=== PATIENT | male | born 1955 | race Caucasian/White ===

== ENCOUNTER 2017-08-09 05:10 | Inpatient (IN) | payer BC, OTHER ==
[2017-08-01 08:33] VITALS: Ht 177.8 cm; Wt 97.3 kg
--- NOTE | 2017-08-01 09:08 | PAT Medication Instructions ---
Service Date Aug 01, 2017. Current Home Medication List Acetaminophen (Tylenol), 1,000 MG PO BID Allopurinol (Zyloprim), 300 MG PO QAM Amoxicillin (Amoxil), 4 TAB PO UD PRN for PRIOR TO DENTAL WORK Apremilast (Otezla), 30 MG PO BID Calcium Citrate-Vitamin D (Citracal + D3 Maximum), 2 TAB PO QAM Cholecalciferol (Vitamin D3), 1,000 INTERUNIT PO QAM Naproxen (Naprosyn), 500 MG PO QAM Olmesartan Medoxomil (Benicar), 20 MG PO QAM Omeprazole (Prilosec), 20 MG PO QAM Ondansetron Hcl (Zofran), 8 MG PO Q8 PRN for Nausea Tramadol (Ultram), 100 MG PO BID PRN for Pain [Stelara Inj], 1 DOSE INJ [id number] Medication Instructions For Your Scheduled Surgery Amoxicillin (Amoxil), 4 TAB PO UD PRN for PRIOR TO DENTAL WORK (continue as directed) - Check with surgeon for instructions: Naproxen (Naprosyn), 500 MG PO QAM - Check with prescribing physician for instructions: [Stelara Inj], 1 DOSE INJ [id number] Apremilast (Otezla), 30 MG PO BID - Hold the following medications the morning of surgery: Olmesartan Medoxomil (Benicar), 20 MG PO QAM Cholecalciferol (Vitamin D3), 1,000 INTERUNIT PO QAM Calcium Citrate-Vitamin D (Citracal + D3 Maximum), 2 TAB PO QAM - Take the following medications the morning of surgery with a sip of water: Tramadol (Ultram), 100 MG PO BID PRN for Pain (okay to take up to 4 hours prior to surgery if needed) Omeprazole (Prilosec), 20 MG PO QAM Ondansetron Hcl (Zofran), 8 MG PO Q8 PRN for Nausea (if needed) Acetaminophen (Tylenol), 1,000 MG PO BID(okay to take up to 4 hours prior to surgery if needed) Allopurinol (Zyloprim), 300 MG PO QAM - Take the following medications as scheduled the night before surgery: Tramadol (Ultram), 100 MG PO BID PRN for Pain (if needed) Ondansetron Hcl (Zofran), 8 MG PO Q8 PRN for Nausea (if needed) Acetaminophen (Tylenol), 1,000 MG PO BID If you have any questions please call us at [phone] or [phone] or [phone]
--- NOTE | 2017-08-01 09:45 | DIAGNOSTIC IMAGING REPORT ---
CHEST 2 VIEWS ROUTINE CLINICAL HISTORY: Preoperative chest COMPARISON STUDY: No previous studies for comparison. FINDINGS: The cardiac and mediastinal contours are normal. There is no evidence of focal pulmonary consolidation. There is no evidence of failure. No pleural effusions are visualized.[There is minor basilar atelectasis/scarring. There is a 6 mm right lower lung zone rounded opacity. A faint similar appearing densities present on the left. Nipple shadows are favored. IMPRESSION: No active disease in the chest. Electronically signed by: Killian Oconnor M.D. 08/01/2017 9:43 AM Dictated Date/Time: 08/01/2017 9:41 AM
[2017-08-01 10:19] LABS: BASO % 0.6 %; BASO ABS # 0.05 K/uL (0-0.2); EOS % 2.2 %; EOS ABS # 0.17 K/uL (0-0.5); HEMATOCRIT 45.6 % (42-52); HEMOGLOBIN 15.7 g/dL (14.0-18.0); IG# 0.02 K/uL (0.00-0.02); LYMPH % 17.2 %; LYMPH ABS # 1.33 K/uL (1.2-3.4); MEAN CORPUSCULAR HEMOGLOBIN 32.4 pg (25-34); MEAN CORPUSCULAR HGB CONC 34.4 g/dl (32-36); MEAN PLATELET VOLUME 11.5 fL (7.4-10.4); MONO ABS # 0.77 K/uL (0.11-0.59); NEUT % 69.7 %; NEUT ABS # 5.38 K/uL (1.4-6.5); PLATELET COUNT 281 K/uL (130-400); RED CELL DISTRIBUTION WIDTH CV 13.7 % (11.5-14.5); RED CELL DISTRIBUTION WIDTH SD 47.1 fL (36.4-46.3); WHITE BLOOD COUNT 7.72 K/uL (4.8-10.8)
[2017-08-01 10:29] LABS: INR 0.9 (0.9-1.1); PTT PATIENT 27.3 SECONDS (21.0-31.0)
[2017-08-01 11:42] LABS: ALBUMIN 3.8 gm/dl (3.4-5.0); CALCIUM 9.8 mg/dl (8.5-10.1); CREATININE 0.89 mg/dl (0.60-1.40); POTASSIUM 4.6 mmol/L (3.5-5.1)
--- NOTE | 2017-08-08 11:46 | HISTORY & PHYSICAL EXAMINATION ---
DATE OF ADMISSION: 08/09/2017 CHIEF COMPLAINT: Right hip pain. HISTORY OF PRESENT ILLNESS: The patient is a 62-year-old gentleman with progressive debilitating right hip pain. He has been known to have some moderate degenerative changes in this hip. He had a corticosteroid injection in the recent past. He has had increased pain and repeat x-rays demonstrate progressive severe degenerative hip disease with collapse of the femoral head. He is now scheduled for right total hip arthroplasty. PAST MEDICAL HISTORY: Hypertension, psoriatic arthritis and gout. PAST SURGICAL HISTORY: Left knee replacement, tonsillectomy, adenoidectomy. MEDICATIONS: Stelara subQ as directed, calcium citrate every morning as indicated. Prednisone as prescribed, vitamin D3 2000 units daily, allopurinol 300 mg daily, Otezla 30 mg twice daily, omeprazole 20 mg daily, Benicar 40 mg 1/2 tablet daily. ALLERGIES: TETRACYCLINE. SOCIAL HISTORY AND REVIEW OF SYSTEMS: Noncontributory. PHYSICAL EXAMINATION: GENERAL: Well-nourished, well-developed male who appears stated age. HEAD, EYES, EARS, NOSE, AND THROAT: Normocephalic, atraumatic, extraocular movements intact, oropharynx pink and moist. NECK: Supple without adenopathy. LUNGS: Clear to auscultation bilaterally. HEART: Regular rate and rhythm. ABDOMEN: Soft, nontender, nondistended. EXTREMITIES: The upper extremities are within normal limits. The right hip demonstrates severe painful range of motion. There is limitation of active and passive internal/external rotation. X-RAYS: X-rays were reviewed. Shows severe osteoarthritis about the right hip with collapse of the femoral head. There is deformation and flattening of the femoral head. ASSESSMENT: Right hip degenerative joint disease. PLAN: Risks versus benefits were discussed. Consent was obtained. The patient's primary care physician is Dr. Zhou from [facility] in [place]. Will proceed with right total hip as indicated.
[~2017-08-09] VITALS: Ht 177.8 cm; Wt 97.3 kg
[2017-08-09] VITALS (10 sets, daily range): BP systolic 104–134; BP diastolic 65–81; PULSE 84–97; TEMP 36.4–36.7; O2SAT 94–99
[~2017-08-09 05:10] MED LIST: ACET-1256 PO; ALLO300T2 PO; AMOX500C3 PO; APRE1TAB3 PO; BNC40 PO; CALC1TAB9 PO; NAPR-1169 PO; ONDA4TAB46 PO; PRLSR20 PO; STELARA; TRAM-10 PO; VTMD1000 PO
[2017-08-09] MEDS ORDERED: LACTATED RINGER'S 1000ML 1,000 ML IV SCH (06:00)
[2017-08-09] MEDS ORDERED: LACTATED RINGER'S 1000ML 500 ML IV SCH (06:00)
[2017-08-09] MEDS ORDERED: LACTATED RINGER'S 1000ML IV SCH (06:00)
[2017-08-09] MEDS ORDERED: FAMOTIDINE 20 MG TAB PO SCH (06:00)
[2017-08-09] MEDS ORDERED: GABAPENTIN 300 MG CAP PO SCH (06:00)
[2017-08-09] MEDS ORDERED: METOCLOPRAMIDE HCL 10 MG TAB PO SCH (06:00)
[2017-08-09] MEDS ORDERED: DEXAMETHASONE 4 MG TAB PO SCH (06:00)
[2017-08-09] MEDS ORDERED: CeleBREX 200 MG CAP PO SCH (06:00)
[2017-08-09] MEDS ORDERED: ROPIVACAINE 5MG/ML 30 ML 150 MG, BUPIVACAINE 0.5% MPF INJ 30 ML, EpINEphrine HCL INJ 0.... INFIL SCH ×8 (06:00)
[2017-08-09] MEDS ORDERED: CEFAZOLIN 2000MG IV PUSH 10 ML IV SCH (06:00)
[2017-08-09] MEDS ORDERED: ACETAMINOPHEN 500 MG TAB PO SCH (06:00)
[2017-08-09] MEDS ORDERED: BUPIVACAINE 0.5 % 5 MG/1 ML PF 10ML VIAL ONE (06:22)
[2017-08-09] MEDS ORDERED: LIDOCAINE HCL 2% 2 ML VIAL (20MG/ML) ONE (06:38)
[2017-08-09] MEDS ORDERED: PROPOFOL IV EMULSION 10 MG/ML 20 ML VIAL IV ONE (06:38)
[2017-08-09] MEDS ORDERED: MIDAZOLAM HCL 1 MG/ML 2ML VIAL ONE ×2 (06:38→08:09)
[2017-08-09] MEDS ORDERED: ONDANSETRON INJ 2 MG/ML 2 ML VIAL ONE (06:38)
[2017-08-09] MEDS ORDERED: FENTANYL CITRATE INJ 50 MCG/1 ML 2 ML VIAL ONE (06:38)
[2017-08-09] MEDS: TRANEXAMIC ACID INJ 1,000 MG in SYRINGE 0 ML IV SCH ×2 (07:01→11:37)
[2017-08-09] MEDS ORDERED: ORTHO JOINT ANESTHETIC ONE (07:02)
--- NOTE | 2017-08-09 07:02 | History & Physical Bridge Note ---
H&P Re-Evaluation Bridge Note: I have examined the patient, reviewed the History & Physical and in the interval since the performance of the History & Physical I have noted the following changes of clinical significance: No changes noted
[2017-08-09] MEDS ORDERED: BACITRACIN 50000 UNIT VIAL ONE (07:03)
[2017-08-09] MEDS ORDERED: POVIDONE-IODINE OP SOLN 30 ML BTL ONE (07:03)
[2017-08-09] MEDS ORDERED: ONDANSETRON INJ 2 MG/ML 2 ML VIAL IV PRN ×2 (07:30→09:15)
[2017-08-09] MEDS ORDERED: ATROPINE SULFATE 0.1 MG/ML 5ML SYR IV PRN (07:30)
[2017-08-09] MEDS ORDERED: EpHEDrine SULFATE INJ 50 MG/ML AMP IV PRN (07:30)
[2017-08-09] MEDS ORDERED: PROMETHAZINE HCL INJ 6.25 MG in SODIUM CHLORIDE 0.9% 50ML 50 ML IV PRN (07:30)
[2017-08-09] MEDS ORDERED: FENTANYL CITRATE INJ 50 MCG/1 ML 2 ML VIAL IV PRN (07:30)
[2017-08-09] MEDS ORDERED: PHENYLEPHRINE 100MCG/ML 5ML SYR ONE (08:17)
--- NOTE | 2017-08-09 08:36 | [facility] Post Operative Brief Note ---
Immediate Operative Summary Operative Date Aug 09, 2017. Pre-Operative Diagnosis Right Hip Degenerative Joint Disease Post-Operative Diagnosis Right Hip Degenerative Joint Disease Procedure(s) Performed Right Total Hip Arthroplasty Surgeon Dr. Otto Photo Technologist Surgeon(s) Chad Fuchs PA-C Estimated Blood Loss 100 mL Findings oa Specimens A: Right Femoral Head Disposition Recovery Room / PACU
[2017-08-09] MEDS ORDERED: ZOLPIDEM TARTRATE 5 MG TAB PO PRN (09:15)
[2017-08-09] MEDS ORDERED: OXYCODONE HCL IR 5 MG TAB (IMMEDIATE RELEASE) PO PRN (09:15)
[2017-08-09] MEDS ORDERED: MoRPHine SULFATE 2 MG/ML CARP IV PRN ×2 (09:15→12:00)
[2017-08-09] MEDS ORDERED: ALUMINUM/MAGNESIUM/SIMETH (MAALOX MAX) 30 ML UDC PO PRN (09:15)
[2017-08-09] MEDS ORDERED: TAMSULOSIN HCL 0.4 MG CAP PO PRN (09:15)
[2017-08-09] MEDS ORDERED: METOCLOPRAMIDE HCL INJ 5 MG/ML 2 ML VIAL IV PRN (09:15)
[2017-08-09] MEDS ORDERED: MAGNESIUM HYDROXIDE SUSP 30 ML UDC PO PRN (09:15)
--- NOTE | 2017-08-09 09:49 | DIAGNOSTIC IMAGING REPORT ---
SINGLE VIEW PELVIS; SINGLE VIEW RIGHT HIP CLINICAL HISTORY: Postoperative examination. FINDINGS: An AP portable view of the hips and pelvis with a crosstable lateral portable view of the right hip are obtained. A bipolar right hip arthroplasty is in near-anatomic alignment. A single cortical lag screw transfixes the acetabular cup. No acute fracture is identified. There are expected postoperative changes overlying the right hip including subcutaneous gas, a surgical drain, and soft tissue swelling. IMPRESSION: Expected postoperative findings status post right hip arthroplasty. No acute fracture is seen. Electronically signed by: Chalo Fletcher M.D. 08/09/2017 9:48 AM Dictated Date/Time: 08/09/2017 9:48 AM
--- NOTE | 2017-08-09 10:10 | Anesthesiology Progress Note ---
Anesthesia Post Op Note Date & Time Aug 09, 2017 at 10:09 Vital Signs Pain Intensity: 0 Vital Signs Past 12 Hours Date Time Temp Pulse Resp B/P (MAP) Pulse Ox O2 Delivery O2 Flow Rate FiO2 08/09/17 10:05 79 13 122/72 96 Nasal Cannula 2 08/09/17 09:55 78 12 110/72 97 Nasal Cannula 2 08/09/17 09:45 78 20 115/44 98 Nasal Cannula 2 08/09/17 09:35 78 19 103/67 97 Nasal Cannula 2 08/09/17 09:25 80 11 103/64 97 Nasal Cannula 2 08/09/17 09:15 80 21 105/70 97 Oxymask 10 08/09/17 09:08 36.6 83 14 104/63 96 Oxymask 10 08/09/17 05:59 36.5 86 18 121/75 96 Room Air Notes Mental Status: alert / awake / arousable, participated in evaluation Pt Amnestic to Procedure: Yes Nausea / Vomiting: adequately controlled Pain: adequately controlled Airway Patency, RR, SpO2: stable & adequate BP & HR: stable & adequate Hydration State: stable & adequate Neuraxial Anesthesia: was administered, sensory block is resolving Anesthetic Complications: no major complications apparent
--- NOTE | 2017-08-09 10:33 | OPERATIVE REPORT ---
DATE OF OPERATION: 08/09/2017 PREOPERATIVE DIAGNOSIS: Osteoarthritis, right hip. POSTOPERATIVE DIAGNOSIS: Osteoarthritis, right hip. PROCEDURE: Right total hip arthroplasty. SURGEON: Dr. Otto. DIVISION SERVICE MANAGER: Chad Fuchs PA-C. ANESTHESIA: Spinal. COMPLICATIONS: None. OPERATION AND FINDINGS: Acetabular reamer used 56, acetabular shell 56, femoral stem 4, femoral head 36+0 ceramic. DESCRIPTION OF PROCEDURE: Following induction of adequate spinal anesthesia, the patient was placed in right lateral decubitus position and right Lacy-Langenbeck incision was made. Subcutaneous tissue was sharply dissected. Electrocautery used for hemostasis. The fascia was incised throughout the length of the wound and a gilbert scissor placed beneath the short external rotators. The pyriformis was tagged with #1 Vicryl. The short external rotators were divided from the posterior aspect of the femur using electrocautery. These were swept posteriorly. A T-capsulotomy incision was made and the hip was dislocated using a combination of flexion, adduction, and internal rotation. Exposure of the femoral neck with old-style Hohmann and a blunt Hohmann was carried out and a femoral rasp was utilized as a guide for making the appropriate level femoral neck cut. This bone fragment was removed and reserved on the back table. Next, attention was turned to the acetabulum where bone hook was used to retract the femur while the offset retractors were placed anterior and posteriorly. A double-angled Hohmann was placed in superior and anterior position exposing the acetabulum nicely. Acetabular labrum as well as posterior capsule elements were removed using a long knife and a long pickup. Fovea centralis was cleared of all soft tissue. Sequential reamings were carried up to a size 56 and decision was made to proceed with impaction of a 56 trabecular metal cup. This was impacted and held using a single 35 mm bone screw. The acetabular liner was placed with 15 of elevated posterior wall in the superior and posterior position. Next, attention was turned to the femoral portion of the case where a Bovie and pickup was used to further clear short external rotators from their insertion on the femur. Box osteotome was used to gain access to the femoral canal and the T-handled rasp and a rattail rasp were used to further open and lateral the canal. Sequentially raspings were carried up to a size 4, which gave good fit and fill of the proximal femur. A trial reduction was carried out and a 132 degree femoral neck component was chosen as the size to be used. A 36+0 mm femoral head was impacted into position, +0 head was utilized. The trial reduction was stable in all degrees of rotation with no [id number] impingement. The hip was dislocated. The trial components were removed and the final femoral stem, neck, and femoral head combination were assembled on the back table and impacted into position. Hip was relocated. Range of motion checked once again successful and the wound was irrigated. The pyriformis repaired to the greater trochanter using #1 Vicryl [id number] suture. A Hemovac drain was placed and the fascia was closed using #1 Vicryl, subcutaneous tissue was closed using 0 Dexon, and skin was closed with ambar. Sterile dressing of Adaptic, 4 x 4's, ABDs, and foam tape was applied. The patient tolerated the procedure well. Due to the complex nature of the procedure, the entire surgery was performed with the operational assistance of Chad Fuchs PA-C. The credit control assistant, under direct supervision, was involved in the actual performance of all aspects of the surgical procedure including hemostasis, tissue retraction and incision, instrument management, patient positioning, and wound closure. DISPOSITION: Recovery room, stable. I attest to the content of the Intraoperative Record and any orders documented therein. Any exception s are noted below.
[2017-08-09] MEDS ORDERED: MoRPHine SULFATE 10 MG/ML CARP/VIAL IV PRN (12:00)
[2017-08-09] MEDS ORDERED: MoRPHine SULFATE 4 MG/ML 1 ML CARP\\VIAL IV PRN (12:00)
[2017-08-09] MEDS: D5W AND 1/2NSS + 20MEQ KCL 1,000 ML IV SCH ×2 (12:54→21:03)
[2017-08-09] MEDS: FERROUS GLUCONATE 324 MG TAB PO SCH ×2 (12:55→17:35)
[2017-08-09] MEDS: KETOROLAC TROMETHAMINE 30 MG/ML VIAL IV. SCH ×2 (12:55→17:35)
[2017-08-09] MEDS: ACETAMINOPHEN 500 MG TAB PO SCH ×2 (12:56→21:03)
[2017-08-09] MEDS: CEFAZOLIN IV 2,000 MG in SYRINGE 0 ML IV SCH (15:34)
[2017-08-09] MEDS: ASPIRIN 81 MG ECTAB PO SCH (21:03)
[2017-08-09] MEDS: DOCUSATE SODIUM 100 MG CAP PO SCH (21:03)
[2017-08-10] MEDS: KETOROLAC TROMETHAMINE 30 MG/ML VIAL IV. SCH ×2 (00:25→04:58)
[2017-08-10] MEDS: CEFAZOLIN IV 2,000 MG in SYRINGE 0 ML IV SCH (00:25)
[2017-08-10 03:30] VITALS: BP 133/74; PULSE 90; TEMP 36.6; O2SAT 97
[2017-08-10] MEDS: ACETAMINOPHEN 500 MG TAB PO SCH ×2 (04:57→12:33)
[2017-08-10 05:35] LABS: BASO % 0.1 %; BASO ABS # 0.01 K/uL (0-0.2); EOS % 0.3 %; EOS ABS # 0.05 K/uL (0-0.5); HEMATOCRIT 39.1 % (42-52); HEMOGLOBIN 13.3 g/dL (14.0-18.0); IG# 0.05 K/uL (0.00-0.02); LYMPH % 11.6 %; LYMPH ABS # 1.81 K/uL (1.2-3.4); MEAN CELL VOLUME 93.3 fL (80-100); MEAN CORPUSCULAR HEMOGLOBIN 31.7 pg (25-34); MEAN PLATELET VOLUME 11.3 fL (7.4-10.4); MONO % 7.9 %; MONO ABS # 1.24 K/uL (0.11-0.59); NEUT % 79.8 %; NEUT ABS # 12.48 K/uL (1.4-6.5); PLATELET COUNT 263 K/uL (130-400); RED CELL DISTRIBUTION WIDTH CV 13.5 % (11.5-14.5); RED CELL DISTRIBUTION WIDTH SD 45.8 fL (36.4-46.3); WHITE BLOOD COUNT 15.64 K/uL (4.8-10.8)
[2017-08-10 06:10] LABS: CALCIUM 9.2 mg/dl (8.5-10.1); CREATININE 1.04 mg/dl (0.60-1.40); POTASSIUM 4.5 mmol/L (3.5-5.1)
[2017-08-10] MEDS: D5W AND 1/2NSS + 20MEQ KCL 1,000 ML IV SCH (06:38)
[2017-08-10 06:52] VITALS: BP 139/87; PULSE 87; TEMP 36.8; O2SAT 99
[2017-08-10] MEDS ORDERED: DEXAMETHASONE INJ 10 MG in SYRINGE 0 ML IV SCH (07:30)
--- NOTE | 2017-08-10 07:41 | Orthopedic Progress Note ---
Orthopedic Progress Note Date of Service Aug 10, 2017. Subjective Post OP Day: 1 Reports: feeling well Objective calves soft nontender, N/V intact, dressing C/D/I (Hemovac d/c'd), toes mobile Date Time Temp Pulse Resp B/P (MAP) Pulse Ox O2 Delivery O2 Flow Rate FiO2 08/10/17 06:52 36.8 87 19 139/87 (104) 99 Room Air 08/10/17 03:30 36.6 90 16 133/74 (93) 97 Room Air 08/10/17 00:15 Room Air 08/09/17 23:27 36.5 84 16 134/76 (95) 97 Room Air 08/09/17 19:17 36.7 91 16 108/67 (81) 96 Room Air 08/09/17 15:16 Room Air 2.0 08/09/17 15:02 36.5 89 16 130/73 (92) 94 Room Air 08/09/17 13:58 36.6 89 18 111/70 (84) 96 Room Air 08/09/17 13:36 95 Room Air 08/09/17 12:52 36.5 97 18 108/68 (81) 94 Room Air 08/09/17 11:51 36.4 85 19 104/65 (78) 99 Nasal Cannula 2.0 08/09/17 11:15 36.5 84 19 122/81 (95) 97 Nasal Cannula 2.0 08/09/17 10:45 97 Nasal Cannula 2.0 08/09/17 10:45 36.5 86 18 104/70 (81) 97 Nasal Cannula 2.0 08/09/17 10:45 97 Nasal Cannula 2.0 08/09/17 10:25 36.4 81 14 112/75 96 Nasal Cannula 2 08/09/17 10:15 36.4 82 16 112/72 96 Nasal Cannula 2 08/09/17 10:05 79 13 122/72 96 Nasal Cannula 2 08/09/17 09:55 78 12 110/72 97 Nasal Cannula 2 08/09/17 09:45 78 20 115/44 98 Nasal Cannula 2 08/09/17 09:35 78 19 103/67 97 Nasal Cannula 2 08/09/17 09:25 80 11 103/64 97 Nasal Cannula 2 08/09/17 09:15 80 21 105/70 97 Oxymask 10 08/09/17 09:08 36.6 83 14 104/63 96 Oxymask 10 Laboratory Results 24 Hours: Test 08/10/17 05:19 White Blood Count 15.64 K/uL Red Blood Count 4.19 M/uL Hemoglobin 13.3 g/dL Hematocrit 39.1 % Mean Corpuscular Volume 93.3 fL Mean Corpuscular Hemoglobin 31.7 pg Mean Corpuscular Hemoglobin Concent 34.0 g/dl Platelet Count 263 K/uL Mean Platelet Volume 11.3 fL Neutrophils (%) (Auto) 79.8 % Lymphocytes (%) (Auto) 11.6 % Monocytes (%) (Auto) 7.9 % Eosinophils (%) (Auto) 0.3 % Basophils (%) (Auto) 0.1 % Neutrophils # (Auto) 12.48 K/uL Lymphocytes # (Auto) 1.81 K/uL Monocytes # (Auto) 1.24 K/uL Eosinophils # (Auto) 0.05 K/uL Basophils # (Auto) 0.01 K/uL Assessment & Plan Assessment: 62 yo male stable POD #1 s/p right ANIKET Plan: 1. Med management 2. DVT prophylaxis- ASA, SCDs 3. PT/OT 4. D/C planning- home w/ HH
[2017-08-10] MEDS ORDERED: RXC5 PO (07:43)
[2017-08-10] MEDS ORDERED: CLB200 PO (07:43)
[2017-08-10] MEDS ORDERED: ONDA8TAB12 PO (07:43)
[2017-08-10] MEDS ORDERED: ASPEC81 PO (07:43)
[2017-08-10] MEDS ORDERED: ACET-24 PO (07:43)
--- NOTE | 2017-08-10 07:45 | Discharge Instructions ---
Discharge Instructions Date of Service Aug 10, 2017. Admission Reason for Admission: Right Hip Osteoarthritis Discharge Discharge Diagnosis / Problem: Right hip arthritis Discharge Goals Goal(s): Decrease discomfort, Improve function Activity Recommendations Activity Limitations: as noted below Weightbearing Status: Right weightbearing (as tolerated) . Instructions / Follow-Up Instructions / Follow-Up ACTIVITY RECOMMENDATIONS: SELF CARE INSTRUCTIONS AFTER TOTAL HIP REPLACEMENT Until the incision and soft tissues around your hip have healed, there is a possibility that the hip prosthesis could dislocate. A. Observe the following precautions to prevent dislocation: 1. Don't bend your hip greater than 90 degrees. 2. Avoid crossing your legs or ankles while standing or lying. 3. Sit with your feet placed 6 inches apart. 4. When sitting, keep your knees below your hips. Sit on a firm surface, avoid deep, soft chairs and couches. Use an elevated toilet seat in the bathroom. 5. Don't bend over at the waist. Use a long handled shoehorn and a sock aid to help you put on your shoes and socks. A metal numerical tool programmer can help you poultry picking machine tender objects that are too high or too low to reach. 6. Keep car riding to a minimum for at least one month after surgery. B. Your balance may be shaky for a while. Use crutches or a walker until directed by your doctor. C. Use hand rails when walking on stairs. D. Wear low heeled shoes with non-slip soles. E. Be sure that your floors are free of things that could trip you - throw rugs , electrical cords, small objects. Avoid wet and waxed floors, especially with crutches and canes. F. Try to walk several times a day with rest periods between. G. Continue with all the exercises taught to you in the hospital. Again, make walking a part of your daily routine. SPECIAL CARE INSTRUCTIONS: VERY IMPORTANT TO READ AND REVIEW A. You may still be at risk for phlebitis and blood clots. 1. Wear surgical stockings (GURWINDER hose) for 2 weeks after surgery to improve circulation and reduce swelling. 2. Take Aspirin 81mg twice daily for 4 weeks or as directed by your doctor. This is your blood thinner. 3. High risk patients may be prescribed a stronger blood thinner if necessary. 4. If you are on Coumadin normally, your family doctor/pickling tank operator should monitor your blood work. Expect a phone call the day of or the day after bloodwork is drawn to adjust your dosage. B. You must take antibiotics before having dental work, bladder, bowel and other surgery. Your doctor will provide you with a permanent card to carry describing precautions. C. Call [facility] if you have a fever, redness or swelling around the incision, cloudy drainage from incision, or sudden increase in pain in your hip, not relieved by your regular pain medication. D. Please call the office at if you have any concerns or questions about your operation or recovery. * YOU MAY SHOWER, NO TUB BATHS UNTIL CLEARED BY YOUR DOCTOR. * WEAR GURWINDER HOSE 20 HOURS PER DAY FOR 2 WEEKS. * YOU SHOULD USE A WALKER OR CRUTCHES FOR 2-4 WEEKS. THIS WILL HELP PREVENT STRAIN ON YOUR HIP MUSCLE AND ALLOW IT TO HEAL PROPERLY. YOU MAY WEAN TO A CANE TOLERATED. * MOST PATIENTS WILL HAVE HOME NURSING FOR THERAPY. IF YOU DECIDE TO DO OUTPATIENT PHYSICAL THERAPY, PLEASE SCHEDULE THIS 3 TIMES PER WEEK. Silverlon- This is a large adhesive bandage that contains silver ions. This helps your incision heal by fighting off bacteria and protecting it from the outside environment. You are permitted to shower with this dressing. This will remain on your incision for 7 days and then should be removed. Some visible blood or drainage through the dressing window is normal. If there is significant drainage or leaking noted before the 7 days notify your doctor's office immediately. Once removed, keep incision clean and dry. If there is any drainage or redness noted, please call your surgeon. Maintain zipline closure when removing Silverlon. Zipline should remain in place until follow- up with MD. FOLLOW UP VISIT: If appointment is not already scheduled: Please call [facility] to make a follow-up appointment for 2 weeks after your surgery at . Current Hospital Diet Patient's current hospital diet: Regular Diet Discharge Diet Recommended Diet: Regular Diet Procedures Procedures Performed: Right Total Hip Arthroplasty Pending Studies Studies pending at discharge: no Laboratory Results Hemoglobin A1c Test 08/01/17 09:16 Range/Units Estimated Average Glucose 126 mg/dl Hemoglobin A1c 6.0 H 4.5-5.6 % Medical Emergencies . Who to Call and When: Medical Emergencies: If at any time you feel your situation is an emergency, please call 911 immediately. . Non-Emergent Contact Non-Emergency issues call your: Surgeon Call Non-Emergent contact if: temperature is above 101.5, your pain is not controlled, wound has increased drainage, wound has increased redness . "Provider Documentation" section prepared by Chad Fuchs PA-C. . VTE Core Measure Inpt VTE Proph given/why not?: Other Anticoagulation (ASA 81mg bid), T.E.D. Stockings, SCD's [place] Drug Monitoring Program Search Results: patient reviewed within database, no issues identified
[2017-08-10] MEDS: ASPIRIN 81 MG ECTAB PO SCH (08:10)
[2017-08-10] MEDS: DOCUSATE SODIUM 100 MG CAP PO SCH (08:10)
[2017-08-10] MEDS: FERROUS GLUCONATE 324 MG TAB PO SCH ×2 (08:11→12:33)
--- NOTE | 2017-08-10 08:26 | Anesthesiology Progress Note ---
Anesthesia Post Op Note Date & Time Aug 10, 2017 at 08:26 Vital Signs Pain Intensity: 0.0 Vital Signs Past 12 Hours Date Time Temp Pulse Resp B/P (MAP) Pulse Ox O2 Delivery O2 Flow Rate FiO2 08/10/17 06:52 36.8 87 19 139/87 (104) 99 Room Air 08/10/17 03:30 36.6 90 16 133/74 (93) 97 Room Air 08/10/17 00:15 Room Air 08/09/17 23:27 36.5 84 16 134/76 (95) 97 Room Air Notes Mental Status: alert / awake / arousable, participated in evaluation Pt Amnestic to Procedure: Yes Nausea / Vomiting: adequately controlled Pain: adequately controlled Airway Patency, RR, SpO2: stable & adequate BP & HR: stable & adequate Hydration State: stable & adequate Neuraxial Anesthesia: sensory block resolved Anesthetic Complications: no major complications apparent
[2017-08-10] MEDS ORDERED: MULTIVITAMIN TAB PO SCH (09:00)
[2017-08-10] MEDS ORDERED: OLMESARTAN MEDOXOMIL 20 MG TAB PO SCH (09:00)
[2017-08-10] MEDS ORDERED: CHOLECALCIFEROL 1000 INTER.UNIT TAB PO SCH (09:00)
[2017-08-10] MEDS ORDERED: ALLOPURINOL 300 MG TAB PO SCH (09:00)
[2017-08-10] MEDS ORDERED: PANTOprazole SOD 40 MG TAB PO SCH (09:00)
[2017-08-10 12:39] VITALS: BP 139/87; PULSE 87; TEMP 36.8; O2SAT 99
[2017-08-10] MEDS ORDERED: CeleBREX 200 MG CAP PO SCH (21:00)
== END 2017-08-10 14:51 | disposition home health service (06) | DRG 470 ==
LOC: C.ACU 05:10 → C.3E 09:12 → ENRESERV 09:47
PROC: 0SR903A Replacement of Right Hip Joint with Ceramic Synthetic Substitute, Uncemented, Open Approach (ICD-10-PCS; principal; 2017-08-09 07:30)
DX: M16.11 Unilateral primary osteoarthritis, right hip (principal); I10 Essential (primary) hypertension; M10.9 Gout, unspecified; Z79.52 Long term (current) use of systemic steroids; Z79.899 Other long term (current) drug therapy; Z96.652 Presence of left artificial knee joint

== ENCOUNTER → 2017-10-10 | Outpatient (CLI) | payer OTHER ==
[~2017-10-10] MED LIST changes: -ACET-1256 PO; +ACET-24 PO; +ASPEC81 PO; +CLB200 PO; -NAPR-1169 PO; +NAPR-998 PO; +NAPR250T3 PO; +RXC5 PO; +ULT50X PO
[2017-10-10 14:29] LABS: BASO % 0.6 %; BASO ABS # 0.05 K/uL (0-0.2); EOS ABS # 0.08 K/uL (0-0.5); HEMATOCRIT 44.7 % (42-52); HEMOGLOBIN 15.3 g/dL (14.0-18.0); IG# 0.03 K/uL (0.00-0.02); LYMPH % 23.1 %; LYMPH ABS # 1.92 K/uL (1.2-3.4); MEAN CELL VOLUME 92.7 fL (80-100); MEAN CORPUSCULAR HEMOGLOBIN 31.7 pg (25-34); MEAN CORPUSCULAR HGB CONC 34.2 g/dl (32-36); MEAN PLATELET VOLUME 11.3 fL (7.4-10.4); MONO % 5.8 %; MONO ABS # 0.48 K/uL (0.11-0.59); NEUT % 69.1 %; NEUT ABS # 5.76 K/uL (1.4-6.5); PLATELET COUNT 293 K/uL (130-400); RED CELL DISTRIBUTION WIDTH CV 13.8 % (11.5-14.5); WHITE BLOOD COUNT 8.32 K/uL (4.8-10.8)
[2017-10-10 14:52] LABS: BLOOD UREA NITROGEN 15 mg/dl (7-18); CALCIUM 9.7 mg/dl (8.5-10.1); CARBON DIOXIDE 27 mmol/L (21-32); CREATININE 0.87 mg/dl (0.60-1.40); GLUCOSE 138 mg/dl (70-99); POTASSIUM 3.6 mmol/L (3.5-5.1); SODIUM 141 mmol/L (136-145)
== END | disposition home or self-care (01) ==
LOC: C.LAB 13:07
PROVIDERS: ATTEND Optometrist
DX: Z01.812 Encounter for preprocedural laboratory examination (principal)

== ENCOUNTER 2017-10-15 08:14 | Inpatient (IN) | payer OTHER ==
[2017-10-11 10:56] VITALS: BMI 31.0
[~2017-10-15] VITALS: Ht 177.8 cm; Wt 97.3 kg
[2017-10-15] VITALS (11 sets, daily range): BP systolic 119–142; BP diastolic 72–85; PULSE 76–101; TEMP 36.4–36.7; O2SAT 96–98; Ht 177.8 cm; Wt 97.3 kg
[~2017-10-15 08:14] MED LIST changes: +ACETAMINOPHEN 500 MG TAB PO SCH; +CEFAZOLIN 2000MG IV PUSH 15 ML IV SCH; +CeleBREX 200 MG CAP PO SCH; +GABAPENTIN 600 MG PO SCH; +LACTATED RINGER'S 1000ML 1,000 ML IV SCH; -NAPR-998 PO; -NAPR250T3 PO; -ULT50X PO
[2017-10-15] MEDS ORDERED: MEPERIDINE HCL 25 MG/ML CARP IV PRN (09:00)
[2017-10-15] MEDS ORDERED: NALOXONE HCL 0.4 MG/1 ML VIAL/CARP IV PRN ×2 (09:00→12:15)
[2017-10-15] MEDS ORDERED: ONDANSETRON INJ 2 MG/ML 2 ML VIAL IV PRN ×2 (09:00→12:15)
[2017-10-15] MEDS ORDERED: ATROPINE SULFATE 0.1 MG/ML 5ML SYR IV PRN (09:00)
[2017-10-15] MEDS ORDERED: EpHEDrine SULFATE INJ 50 MG/ML AMP IV PRN (09:00)
[2017-10-15] MEDS ORDERED: PHENYLEPHRINE 100MCG/ML 5ML SYR IV PRN (09:00)
[2017-10-15] MEDS ORDERED: FENTANYL CITRATE INJ 50 MCG/1 ML 2 ML VIAL IV PRN (09:00)
[2017-10-15] MEDS ORDERED: FLUMAZENIL 0.1 MG/1 ML 10 ML VIAL IV PRN (09:00)
[2017-10-15] MEDS ORDERED: LABETALOL HCL IV 5 MG/ML 20ML IV PRN (09:00)
[2017-10-15] MEDS ORDERED: NAPR-998 PO ×2 (09:24)
[2017-10-15] MEDS ORDERED: NAPR250T3 PO ×2 (09:24)
[2017-10-15] MEDS ORDERED: MIDAZOLAM HCL 1 MG/ML 2ML VIAL ONE (09:27)
[2017-10-15] MEDS ORDERED: FENTANYL CITRATE INJ 50 MCG/1 ML 2 ML VIAL ONE ×3 (09:27→10:38)
--- NOTE | 2017-10-15 09:47 | History and Physical ---
History & Physical Date Oct 15, 2017. Chief Complaint Neck pain with bilateral arm pain History of Present Illness The patient is a 62 year old male with complaints of neck and arm pain Past Medical/Surgical History Medical Problems: (1) Arthritis of right hip Additional History Hepatic Disease: No Endocrine Disorder: No Kidney Disease: No Hypertension: No Heart Disease: No Bleeding Tendencies: No Infectious Diseases: No Allergies Coded Allergies: Tetracycline (Verified Allergy, Unknown, PT UNSURE OF RXN, OCCURED A CHILD, 10/11/17) Home Medications Scheduled Allopurinol (Zyloprim), 300 MG PO QAM Apremilast (Otezla), 30 MG PO BID Calcium Citrate-Vitamin D (Citracal + D3 Maximum), 2 TAB PO QAM Cholecalciferol (Vitamin D3), 1,000 INTERUNIT PO QAM Naproxen Sodium-Diphenhydramin (Aleve Pm 220-25 mg), 1 TAB PO DAILY Naproxen Tab (Naprosyn), 250 MG PO DAILY Olmesartan Medoxomil (Benicar), 20 MG PO QAM Omeprazole (Prilosec), 20 MG PO QAM [Stelara Inj], 1 DOSE INJ [id number] Scheduled PRN Amoxicillin (Amoxil), 4 TAB PO UD PRN for PRIOR TO DENTAL WORK Tramadol (Ultram), 100 MG PO BID PRN for Pain Physical Examination Skin: warm/dry, no rash Eyes: normal inspection, EOMI, sclerae normal ENT: normal ENT inspection, pharynx normal Head: normocephalic, atraumatic Neck: supple, no adenopathy, trachea midline Respiratory/Chest: lungs clear, normal breath sounds, no respiratory distress Cardiovascular: regular rate, rhythm, no edema, no murmur Abdomen / GI: normal bowel sounds, non tender Back: normal inspection Extremities: normal inspection, normal range of motion Neurologic/Psych: no motor/sensory deficits, alert, normal reflexes, oriented x 3 Diagnosis Cervical spinal stenosis with myelopathy Plan of Treatment C4 corpectomy and fusion
[2017-10-15] MEDS ORDERED: BACITRACIN 50000 UNIT VIAL ONE (10:01)
[2017-10-15] MEDS ORDERED: HYDROmorphone INJ 2 MG/ML SYR/VIAL ONE ×2 (10:38→11:52)
[2017-10-15] MEDS ORDERED: ROCURONIUM BROMIDE 10 MG/ML 5 ML VIAL IV ONE (11:52)
[2017-10-15] MEDS ORDERED: ONDANSETRON INJ 2 MG/ML 2 ML VIAL ONE ×2 (11:52→11:53)
[2017-10-15] MEDS ORDERED: PROPOFOL IV EMULSION 10 MG/ML 20 ML VIAL IV ONE (11:52)
[2017-10-15] MEDS ORDERED: DEXAMETHASONE SOD INJ 4 MG/ML VIAL ONE (11:52)
[2017-10-15] MEDS ORDERED: FLOSEAL HEMOSTATIC MATRIX 10ML TOP ONE (11:52)
[2017-10-15] MEDS ORDERED: LIDOCAINE HCL 2% 2 ML VIAL (20MG/ML) ONE (11:52)
[2017-10-15] MEDS ORDERED: NEOSTIGMINE METHYLSULFATE 1 MG/ML 10ML VIAL ONE (11:53)
[2017-10-15] MEDS ORDERED: GLYCOPYRROLATE INJ 0.2 MG/ML VIAL ONE (11:53)
[2017-10-15] MEDS ORDERED: PHENYLEPHRINE 100MCG/ML 5ML SYR ONE (11:53)
--- NOTE | 2017-10-15 12:01 | [facility] Operative Report ---
Operative Report Operative Date Oct 15, 2017. Pre-Operative Diagnosis Cervical Spinal Stenosis with Myelopathy Post-Operative Diagnosis Same Procedure(s) Performed 1. Anterior cervical corpectomy C4. #2 anterior cervical arthrodesis C3-C5. #3 placement peek cage 25 mm night C3-C5. #4 placement of locally harvested morselized autograft combined with DBM in the interbody cage. #5 application for complete and screws from C3-C5. Surgeon Dr. Jarod Salcedo Animal Killer Surgeon(s) Savana Dickey PA-C Estimated Blood Loss 50 cc Findings Severe spinal stenosis Description of Procedure Patient was met with preoperatively case discussed all questions addressed. After informed consent obtained patient was taken to the operative suite underwent intubation and placed in supine position on the Erwin table with head Guerrier headholder. All bony prominences were well-padded eyes inspected to ensure no external pressure placed upon him. This point the anterior cervical spine was prepped and draped in normal sterile fashion. The assistance of fluoroscopy identified the C4 vertebral body. Transverse incision was then placed on the right anterior aspect of the cervical spine overlying this region. Sharp dissection with the assistance of bipolar cautery was performed to expose the anterior cervical spine from C3-C5. Then performed a complete discectomy of C3-4 out to the uncovertebral joints bilaterally followed by C4-5. [place] distractor pins were then placed in C3 and C5 to distract across the C4 vertebral body. Then performed a complete corpectomy of C4 including removal of all posterior annular fibers longitudinal ligament bilateral foraminotomies for complete decompression. The endplates were then burred to subcortical bleeding bone and a 25 mm peek cage filled with locally harvested morselized autograft and DBM bone graft tapped in position. Distraction apparatus was removed and felt complete and screws applied with the assistance of fluoroscopy. Incision was then copiously irrigated explored to ensure there is no damage to surrounding structures or remaining bleeding and a 10 round NADIA drain inserted. Was then closed with 2 Vicryl in a fashion of 4-0 Monocryl for fashion closure Steri-Strips sterile dressings placed. Patient will continue taking stable condition. Please note Savana Dong was present throughout the entire procedure involved in patient positioning complex portions of the surgery and fashion closure. I attest to the content of the Intraoperative Record and any orders documented therein. Any exceptions are noted below.
[2017-10-15] MEDS ORDERED: ESMOLOL HCL 10 MG/ML 10 ML VIAL ONE (12:08)
[2017-10-15] MEDS ORDERED: HYDROmorphone INJ 0.5 MG/0.5 ML SYR IV PRN (12:15)
[2017-10-15] MEDS ORDERED: MAGNESIUM HYDROXIDE SUSP 30 ML UDC PO PRN (12:15)
[2017-10-15] MEDS ORDERED: ACETAMINOPHEN IV 100 ML IV PRN (12:15)
[2017-10-15] MEDS ORDERED: LORAZEPAM 0.5 MG TAB PO PRN (12:15)
[2017-10-15] MEDS ORDERED: DEXAMETHASONE INJ 8 MG in SYRINGE 0 ML IV PRN (12:15)
[2017-10-15] MEDS ORDERED: DiphenhydrAMINE HCL 50 MG/ML VIAL IV PRN (12:15)
[2017-10-15] MEDS ORDERED: DO NOT ADMINISTER FLU VACCINE PRN (12:15)
[2017-10-15] MEDS ORDERED: RACEPINEPHRINE 2.25% NEBU SOLN 0.5 ML VIAL INH PRN (12:15)
[2017-10-15] MEDS ORDERED: DO NOT ADMINISTER PNEUMOCOCCAL VACCINE PRN (12:15)
[2017-10-15] MEDS ORDERED: LORAZEPAM INJ 0.5 MG in SYRINGE 0.75 ML IV PRN (12:15)
[2017-10-15] MEDS ORDERED: TRAMADOL HCL 50 MG TAB PO PRN (12:15)
[2017-10-15] MEDS: HYDROmorphone INJ 2 MG/ML SYR/VIAL IV PRN ×2 (12:20→12:34)
--- NOTE | 2017-10-15 12:34 | DIAGNOSTIC IMAGING REPORT ---
CERVICAL 2 OR 3 VIEWS CLINICAL HISTORY: C4 CORPECTOMY, FUSION postoperative evaluation TECHNIQUE: Image intensifier COMPARISON STUDY: None FINDINGS: Findings consistent with an anterior fusion and corpectomy from C4 through C6. Disc spaces are present. IMPRESSION: Anatomic alignment post anterior cervical fusion and corpectomy The above report was generated using voice recognition software. It may contain grammatical, syntax or spelling errors. Electronically signed by: Cedric Gay M.D. 10/15/2017 12:33 PM Dictated Date/Time: 10/15/2017 12:32 PM
--- NOTE | 2017-10-15 12:48 | Anesthesiology Progress Note ---
Anesthesia Post Op Note Date & Time Oct 15, 2017 at 12:48 Vital Signs Pain Intensity: 2 Vital Signs Past 12 Hours Date Time Temp Pulse Resp B/P (MAP) Pulse Ox O2 Delivery O2 Flow Rate FiO2 10/15/17 12:40 77 16 138/74 96 Nasal Cannula 4 10/15/17 12:30 85 16 135/77 96 Oxymask 10 10/15/17 12:20 85 16 132/76 96 Oxymask 10 10/15/17 12:11 36.1 75 16 138/77 98 Oxymask 10 10/15/17 08:53 36.7 90 18 122/72 97 Room Air Notes Mental Status: alert / awake / arousable, participated in evaluation Pt Amnestic to Procedure: Yes Nausea / Vomiting: adequately controlled Pain: adequately controlled Airway Patency, RR, SpO2: stable & adequate BP & HR: stable & adequate Hydration State: stable & adequate Anesthetic Complications: no major complications apparent The patient is doing well. He is awake and comfortable with no neck swelling.
[2017-10-15] MEDS ORDERED: HYDROmorphone INJ 1 MG/ML SYR IV PRN (14:30)
[2017-10-15] MEDS ORDERED: ULT50X PO ×2 (14:56)
--- NOTE | 2017-10-15 14:57 | Discharge Instructions ---
Discharge Instructions Date of Service Oct 15, 2017. Admission Reason for Admission: Spinal Stenosis, Cervical Region Discharge Discharge Diagnosis / Problem: cervical stenosis Discharge Goals Goal(s): Improve function Activity Recommendations Activity Limitations: per Instructions/Follow-up section . Instructions / Follow-Up Instructions / Follow-Up ACTIVITY RECOMMENDATIONS: SELF CARE INSTRUCTIONS AFTER CERVICAL FUSIONS 1. No smoking. Smoking drastically decreases the chance of a solid fusion. 2. No bending, lifting more than 5 pounds, or twisting (roll like a log when turning in bed). 3. You may shower 3 days after surgery. Thoroughly dry wound. Do not soak in the tub. 4. Cervical collar: Must be worn at all times including sleeping. You may remove the brace only to bath, eat and if you are sitting in a recliner. 5. Please walk as much as you can for exercise. Gradually increase the distance that you walk as your endurance increases. SPECIAL CARE INSTRUCTIONS: VERY IMPORTANT TO READ AND REVIEW A. Do not take any anti-inflammatory medications (i.e. Indocin, Advil, Aspirin, Naprosyn, Aleve, Motrin, etc.) as these may inhibit the chance of a solid fusion. Tylenol is okay to take. B. Your surgical incision has been closed with a cosmetic suture under the skin that will dissolve in about 6 weeks. In 14 days, you can use a pair of clean scissors and cut the suture that is left outside of the skin at the ends of your incision. C. Complications are uncommon, but please contact us if you have any signs or symptoms of: 1. wound infection (fever higher than 102.5 degrees F, redness, separation of wound, drainage, or increasing pain from the incision) 2. blood clots in legs (pain, swelling, redness and warmth in legs) 3. urinary tract infection (fever higher than 102.5 degrees, burning upon urination or increased frequency of urination) 4. nerve problems (inability to walk on your toes or heels, numbness, loss of bowel or bladder control) 5. any other symptoms that concern you. D. Please call the office at if you have any concerns or questions about your operation or recovery. MANAGING PAIN AFTER SPINAL SURGERY 1. Narcotic medication is intended for short-term use and will be provided for surgical pain. Surgical pain usually lasts for a period of 4-6 weeks. Narcotic medication includes Percocet, Vicodin, Darvocet, Tylenol #3 or Lortab. 2. Longer-term pain is more appropriately treated with non-narcotic medication such as Tylenol ES. 3. Muscle spasm is not appropriately treated with narcotics. Muscle relaxers such as Soma, Flexeril or Skelaxin can be used along with Tylenol ES. 4. Remember that we all live with some "aches and pains". This is not unusual or uncommon after an injury or as we get older. 5. We will provide appropriate medication within the normal guidelines of their prescribed use. We will also be very cautious and aware of potential abuse and extended duration of patients' medication needs. 6. Please allow 2-3 days to process refills. Prescriptions will not be mailed but must be picked up at the office. FOLLOW UP VISIT: Keep your scheduled follow-up appointment. Any questions, please call the office at . Current Hospital Diet Patient's current hospital diet: Clear Liquid Diet Discharge Diet Recommended Diet: Regular Diet Procedures Procedures Performed: 1. Anterior cervical corpectomy C4. #2 anterior cervical arthrodesis C3-C5. #3 placement peek cage 25 mm night C3-C5. #4 placement of locally harvested morselized autograft combined with DBM in the interbody cage. #5 application for complete and screws from C3-C5. Pending Studies Studies pending at discharge: no Laboratory Results Hemoglobin A1c Test 08/01/17 09:16 Range/Units Estimated Average Glucose 126 mg/dl Hemoglobin A1c 6.0 H 4.5-5.6 % Medical Emergencies . Who to Call and When: Medical Emergencies: If at any time you feel your situation is an emergency, please call 911 immediately. . Non-Emergent Contact Non-Emergency issues call your: Primary Care Provider . "Provider Documentation" section prepared by Jarod Salcedo. .
[2017-10-15] MEDS ORDERED: SCOPOLAMINE 1.5 MG TDSY TD SCH (16:00)
[2017-10-15] MEDS: CEFAZOLIN IV 2,000 MG in SYRINGE 0 ML IV SCH (17:49)
[2017-10-15] MEDS: SODIUM CHLORIDE 0.9% 1000ML 1,000 ML IV SCH (17:50)
[2017-10-15] MEDS: DEXAMETHASONE INJ 6 MG in SYRINGE 0 ML IV SCH (20:44)
[2017-10-15] MEDS: DOCUSATE SODIUM 100 MG CAP PO SCH (20:44)
[2017-10-16] VITALS (14 sets, daily range): BP systolic 118–158; BP diastolic 18–92; PULSE 81–101; TEMP 36.6–36.9; O2SAT 94–98
[2017-10-16] MEDS: CEFAZOLIN IV 2,000 MG in SYRINGE 0 ML IV SCH ×2 (02:23→09:37)
[2017-10-16] MEDS ORDERED: NURSING DECISION MEDICATION ORDER SCH (02:30)
[2017-10-16] MEDS: DEXAMETHASONE INJ 6 MG in SYRINGE 0 ML IV SCH ×2 (04:30→11:25)
[2017-10-16] MEDS: SODIUM CHLORIDE 0.9% 1000ML 1,000 ML IV SCH (06:29)
--- NOTE | 2017-10-16 08:00 | Anesthesiology Progress Note ---
Anesthesia Post Op Note Date & Time Oct 16, 2017 at 07:59 Vital Signs Pain Intensity: 0.0 Vital Signs Past 12 Hours Date Time Temp Pulse Resp B/P (MAP) Pulse Ox O2 Delivery O2 Flow Rate FiO2 10/16/17 07:30 92 16 94 Room Air 10/16/17 06:26 36.6 85 16 127/76 97 Room Air 10/16/17 04:31 36.6 81 16 118/18 97 Nasal Cannula 2.0 Humidified Oxygen 10/16/17 04:02 98 16 96 Nasal Cannula 4.0 10/16/17 02:26 36.7 90 16 138/87 96 Nasal Cannula 2.0 Humidified Oxygen 10/16/17 02:23 36.7 90 16 138/87 (104) 96 Nasal Cannula 2.0 Humidified Oxygen 10/16/17 00:42 Nasal Cannula 4.0 Humidified Oxygen 10/16/17 00:37 36.7 95 16 125/78 98 Nasal Cannula 4.0 Humidified Oxygen 10/16/17 00:30 36.7 95 16 125/78 (94) 98 Nasal Cannula 4.0 Humidified Oxygen 10/16/17 00:02 93 16 97 Nasal Cannula 4.0 10/15/17 22:30 36.6 98 16 122/76 97 Nasal Cannula 4.0 Humidified Oxygen 10/15/17 20:41 95 16 97 Nasal Cannula 4.0 10/15/17 20:30 36.5 101 16 133/77 96 Nasal Cannula 4.0 Humidified Oxygen Notes Mental Status: alert / awake / arousable, participated in evaluation Pt Amnestic to Procedure: Yes Nausea / Vomiting: adequately controlled Pain: adequately controlled Airway Patency, RR, SpO2: stable & adequate BP & HR: stable & adequate Hydration State: stable & adequate Anesthetic Complications: no major complications apparent
[2017-10-16] MEDS: CHECK SCOPOLAMINE PATCH PLACEMENT SCH ×2 (08:29)
[2017-10-16] MEDS: DOCUSATE SODIUM 100 MG CAP PO SCH (08:42)
[2017-10-16] MEDS ORDERED: PANTOprazole SOD 40 MG TAB PO SCH (09:00)
[2017-10-16] MEDS ORDERED: ALLOPURINOL 300 MG TAB PO SCH (09:00)
[2017-10-16] MEDS ORDERED: OLMESARTAN MEDOXOMIL 40 MG TAB PO SCH (09:00)
--- NOTE | 2017-10-16 13:40 | Discharge Summary ---
Orthopedic Discharge Summary Admission Date/Reason Oct 15, 2017 at 12:05 Spinal Stenosis, Cervical Region. Discharge Date/Disposition Oct 16, 2017 Home Diagnosis Principal Diagnosis: Cervical spinal stenosis Admission Physical Exam As per Admitting History & Physical. Hospital Course Patient underwent anterior cervical decompression fusion tolerated this well was taken to the orthopedic floor postoperatively. Postop day #1 he was swallowing well arm symptoms markedly improved NADIA drain decreased appropriately substernally discharged home. Discharge orders and instructions found in the chart for further review. Discharge Instructions Please refer to the electronic Patient Visit Report (Discharge Instructions) for additional information.
[2017-10-17] MEDS ORDERED: BISACODYL 5 MG TABEC PO PRN (06:00)
[2017-10-17] MEDS ORDERED: BISACODYL 10 MG SUPP PR PRN (06:00)
[2017-10-18] MEDS ORDERED: POLYETHYLENE (MIRALAX) 17 GM PACK PO SCH (09:00)
== END 2017-10-16 14:30 | disposition home or self-care (01) | DRG 472 ==
LOC: C.ACU 08:14 → C.3E 12:05 → ENRESERV 13:06
PROVIDERS: ADMIT Orthopaedic Surgery Orthopaedic Surgery of the Spine; ATTEND Orthopaedic Surgery Orthopaedic Surgery of the Spine
PROC: 0RG20J0 Fusion of 2 or more Cervical Vertebral Joints with Synthetic Substitute, Anterior Approach, Anterior Column, Open Approach (ICD-10-PCS; principal; 2017-10-15 10:15)
PROC: 0RT30ZZ Resection of Cervical Vertebral Disc, Open Approach (ICD-10-PCS; principal; 2017-10-15 10:15)
PROC: 0RG20A0 Fusion of 2 or more Cervical Vertebral Joints with Interbody Fusion Device, Anterior Approach, Anterior Column, Open Approach (ICD-10-PCS; principal; 2017-10-15 10:15)
PROC: 0RG2070 Fusion of 2 or more Cervical Vertebral Joints with Autologous Tissue Substitute, Anterior Approach, Anterior Column, Open Approach (ICD-10-PCS; principal; 2017-10-15 10:15)
DX: M48.02 Spinal stenosis, cervical region (principal); G95.9 Disease of spinal cord, unspecified; Z88.1 Allergy status to other antibiotic agents

== ENCOUNTER 2019-02-06 06:10 | Inpatient (IN) ==
--- NOTE | 2019-01-14 17:57 | PAT Medication Instructions ---
Medication Instructions Date of Service January 14, 2019 Home Medications allopurinol 300 mg PO QAM calcium-vitamin D3-vitamin K [Viactiv] 1 tab PO BID cholecalciferol (vitamin D3) [Vitamin D3] 2,000 unit PO BID fluoxetine 10 mg PO HS folic acid 1 mg PO DAILY methotrexate (PF) [Otrexup (PF)] 20 mg SUBCUT UD methotrexate sodium 12.5 mg PO WK methylprednisolone 4 mg PO DAILY naproxen 500 mg PO BID olmesartan [Benicar] 20 mg PO QAM omeprazole 20 mg PO BID tramadol 50 mg PO UD PRN ASK your surgeon for instructions naproxen 500 mg PO BID ASK your prescriber and surgeon methotrexate (PF) [Otrexup (PF)] 20 mg SUBCUT UD methotrexate sodium 12.5 mg PO WK DO NOT take the morning of surgery calcium-vitamin D3-vitamin K [Viactiv] 1 tab PO BID cholecalciferol (vitamin D3) [Vitamin D3] 2,000 unit PO BID folic acid 1 mg PO DAILY olmesartan [Benicar] 20 mg PO QAM Take morning of surgery With a small sip of water, OTHERWISE NOTHING TO EAT OR DRINK AFTER MIDNIGHT: allopurinol 300 mg PO QAM methylprednisolone 4 mg PO DAILY omeprazole 20 mg PO BID tramadol 50 mg PO UD PRN (if needed, may be taken up to four hours before surgery) Take evening before surgery calcium-vitamin D3-vitamin K [Viactiv] 1 tab PO BID cholecalciferol (vitamin D3) [Vitamin D3] 2,000 unit PO BID fluoxetine 10 mg PO HS omeprazole 20 mg PO BID tramadol 50 mg PO UD PRN (if needed) Other Notes If you have any questions please call us at [phone] or [phone] or [phone] or [phone]
--- NOTE | 2019-01-15 13:50 | Anesthesiology Consultation ---
Date of Service January 15, 2019 Assessment & Plan (1) Encounter for pre-operative examination: PCP Clearance (Muna Ibrahim PA-C) 01/23/19 = "The patient is cleared for surgery-left hip replacement." Chart Review Chart Review: Acceptable Risk for Surgery and Patient seen in Pre Admission Testing Teaching & Discussion Instructed NPO after midnight before surgery, except medications with 15 cc of water. Medication instructions provided according to the PAT guidelines. History Surgery Operation Date: 02/06/19 11:50 Proposed Procedures p Left Anterior Total Hip Arthroplasty - Kenny Cano DO Height/Weight Height: 5 ft 8 in Weight: 91 kg Allergies Allergy/AdvReac Type Severity Reaction Status Date / Time tetracycline Allergy Unknown PT UNSURE Verified 01/06/19 11:45 OF RXN, OCCURED A CHILD Medications Home Medications Medication Instructions Recorded Confirmed Last Taken allopurinol 300 mg PO QAM 01/06/19 01/06/19 01/06/19 calcium-vitamin D3-vitamin K 1 tab PO BID 01/06/19 01/06/19 01/06/19 [Viactiv] cholecalciferol (vitamin D3) 2,000 unit PO BID 01/06/19 01/06/19 01/06/19 [Vitamin D3] fluoxetine 10 mg PO HS 01/06/19 01/06/19 01/05/19 folic acid 1 mg PO DAILY 01/06/19 01/06/19 01/06/19 methotrexate (PF) [Otrexup (PF)] 20 mg SUBCUT UD 01/06/19 01/06/19 01/06/19 methotrexate sodium 12.5 mg PO WK 01/06/19 01/06/19 Unknown methylprednisolone 4 mg PO DAILY 01/06/19 01/06/19 01/06/19 naproxen 500 mg PO BID 01/06/19 01/06/19 01/06/19 olmesartan [Benicar] 20 mg PO QAM 01/06/19 01/06/19 01/06/19 omeprazole 20 mg PO BID 01/06/19 01/06/19 01/06/19 tramadol 50 mg PO UD PRN 01/06/19 01/06/19 Unknown Past Medical History Medical History Acid reflux Gout History of kidney stones X1 Hypertension Osteoarthritis Psoriatic arthritis Exercise / Class Metabolic Activity II 4-5 Yardwork/Stairs/Walk up hill (Denies CP or SOB with stairs, does daily) Past Family History Family History Mother Family history of cancer Sister Family history of cancer Past Surgical History Surgical History History of colonoscopy History of neck surgery C4 CORPECTOMY ([facility]/DR BRAGA) History of total left knee replacement History of total right hip arthroplasty Past Anesthesia History No Hx of Anesthesia Complications and No Family Hx of Anesthesia Complications 08/09/17 ANIKET @ [facility] = SAB x 1 attempt, no issues noted on record. History of PONV No Hx of PONV and No Hx of Motion Sickness Social History Smoking Status: Never smoker Do You Dip or Chew Tobacco: No (HX OF, QUIT 10 YR AGO) Hx Alcohol Use: Yes Alcohol type: beer alcohol intake frequency: 3 or more drinks per day Alcohol Intake Frequency Comment: AVERAGE 4-5 LIGHT BEERS A DAY Hx Substance Use: No substance use type: does not use Review of Systems Pt denies any recent chest pain, shortness of breath, palpitations, cough, fever or URI. Physical Exam Vital Signs BP: 106/69 P: 79bpm SPO2: 96% RA T: 98.3 F R: 16 ENMT Mouth: + dental bridge (upper R), + dental restorations (several crowns) and + chipped teeth (few broken); no loose teeth Thyromental Distance: > or= 3.5 Finger Breadths (4) Mallampati Class: I Neck + short neck and + facial hair (short mustache); neck extension not limited Respiratory normal respiratory effort Auscultation: lungs clear to auscultation bilaterally Cardiovascular Rate/Rhythm: regular rate and regular rhythm Heart Sounds: no murmur Vessels: no carotid bruit Testing Laboratory Results 01/15/19 14:10 01/15/19 14:10 PT 10.2 Seconds (9.0-12.0) 01/15/19 14:10 INR 1.0 (0.9-1.1) 01/15/19 14:10 APTT 26.8 Seconds (21.0-31.0) 01/15/19 14:10 Hemoglobin A1c 5.9 % (4.5-5.6) H 01/15/19 14:10 Urine Color Yellow 01/15/19 14:10 Urine Appearance Clear (Clear) 01/15/19 14:10 Urine pH 7.5 (4.5-7.5) 01/15/19 14:10 Ur Specific [place] 1.015 (1.000-1.030) 01/15/19 14:10 Urine Protein Negative (Negative) 01/15/19 14:10 Urine Glucose (UA) Negative (Negative) 01/15/19 14:10 Urine Ketones Negative (Negative) 01/15/19 14:10 Urine Nitrite Negative (Negative) 01/15/19 14:10 Ur Leukocyte Esterase Negative (Negative) 01/15/19 14:10 Blood Type O Positive 01/15/19 14:10 Antibody Screen NEGATIVE 01/15/19 14:10 01/15/19 14:10 Urine Culture - Final Urine,Clean Catch No growth - less than 1,000 colonies/mL. Electrocardiogram Date: 01/15/19 Findings: + NSR @ (70) RBBB. Chest X-Ray Date: 01/15/19 Findings: + NAD
[2019-01-15 14:53] LABS: Basophils # (auto) 0.02 K/uL (0-0.2); Basophils % (auto) 0.2 %; Eosinophils # (auto) 0.09 K/uL (0-0.5); Hematocrit (blood only) 42.5 % (42-52); Hemoglobin 14.6 g/dL (14.0-18.0); Immature Granulocytes # (auto) 0.04 K/uL (0.00-0.02); Immature Granulocytes % (auto) 0.4 %; Lymphocytes # (auto) 1.85 K/uL (1.2-3.4); Lymphocytes % (auto) 20.1 %; Mean Corpuscular Hgb Conc 34.4 g/dL (32-36); Mean Corpuscular Volume 94.7 fL (80-100); Mean Platelet Volume 10.6 fL (7.4-10.4); Monocytes % (auto) 6.5 %; Neutrophils # (auto) 6.61 K/uL (1.4-6.5); Neutrophils % (auto) 71.8 %; Platelet Count 281 K/uL (130-400); RDW Coefficient of Variation 14.9 % (11.5-14.5); Red Blood Count 4.49 M/uL (4.7-6.1); White Blood Count 9.21 K/uL (4.8-10.8)
--- NOTE | 2019-01-15 14:53 | XRay Report ---
XR chest Pre-admission PA/Lat CLINICAL HISTORY: pat preoperative evaluation COMPARISON STUDY: 12/02/2014 FINDINGS: The bones soft tissues and hemidiaphragms are normal. The cardiomediastinal silhouette is n ormal. The lungs are clear. The pulmonary vasculature is normal. IMPRESSION: Negative chest. The above report was generated using voice recognition software. It may contain grammatical, syntax or spelling errors. Electronically signed by: Cedric Gay M.D. 01/15/2019 2:52 PM
[2019-01-15 14:54] LABS: Appearance Urine Clear (Clear); Bilirubin Urine Negative (Negative); Blood Urine Negative (Negative); Color Urine Yellow; Glucose Urine UA Negative (Negative); Ketones Urine Negative (Negative); Leukocyte Esterase Urine Negative (Negative); Nitrite Urine Negative (Negative); Protein Urine Negative (Negative); Specific Gravity Urine 1.015 (1.000-1.030); Urobilinogen Urine Negative (Negative); pH Urine 7.5 (4.5-7.5)
[2019-01-15 15:01] LABS: Albumin Level 3.8 gm/dl (3.4-5.0); BUN Creatinine Ratio 16.6 (10-20); Calcium 9.4 mg/dl (8.5-10.1); Creatinine Clr Calc Pharmacy 98.3 ml/min; Est GFR (African American) 108.1; Est GFR (Non-African American) 93.3; Potassium 3.8 mmol/L (3.5-5.1)
[2019-01-15 15:06] LABS: Partial Thromboplastin Time 26.8 Seconds (21.0-31.0); Prothrombin Time 10.2 Seconds (9.0-12.0)
[2019-01-16 06:16] LABS: Estimated Average Glucose 123 mg/dl; Hemoglobin A1C 5.9 % (4.5-5.6)
--- NOTE | 2019-02-05 20:24 | History & Physical Report ---
Date of Service February 05, 2019 Assessment & Plan (1) Degenerative joint disease of left hip: I have indicated the patient for left anterior total hip replacement. The risks, benefits and complications of surgery were explained to the patient which include but not limited to infection, acute blood loss, DVT/PE, injury to nerves, vessels, bone, soft tissue, arthrofibrosis, chronic pain, failure of the prosthesis, hip dislocation, leg length discrepancy, need for additional surgery, cardiac and pulmonary events and . The patient wished to proceed with surgery and informed consent was obtained at this time. We will plan for ASA BID post-operatively for DVT prophylaxis. Upon discharge the patient will be discharged home with home health services. Appropriate clearances by PCP were obtained. History of Present Illness Chief Complaint: Left hip pain/djd Primary Care Provider: Sudhir Dickey The patient is a 63 year old male who presents with complaints of severe left hip pain and DJD. The patient has failed outpatient conservative treatments to this point which included NSAIDS, corticosteroid injection, home exercise/w alking program. The patient's pain and limited function have progressed to the point where they severely hinder their activities of daily living and they no longer tolerate exercise programs. They are requesting to proceed with total hip replacement surgery. Allergies Allergy/AdvReac Type Severity Reaction Status Date / Time tetracycline Allergy Unknown PT UNSURE Verified 01/06/19 11:45 OF RXN, OCCURED A CHILD Home Medications Home Medications Medication Instructions Recorded Confirmed Type allopurinol 300 mg PO QAM 01/06/19 02/06/19 History calcium-vitamin D3-vitamin K 1 tab PO BID 01/06/19 02/06/19 History [Viactiv] cholecalciferol (vitamin D3) 2,000 unit PO BID 01/06/19 02/06/19 History [Vitamin D3] fluoxetine 10 mg PO HS 01/06/19 02/06/19 History folic acid 1 mg PO DAILY 01/06/19 02/06/19 History methotrexate (PF) [Otrexup (PF)] 20 mg SUBCUT UD 01/06/19 02/06/19 History methotrexate sodium 12.5 mg PO WK 01/06/19 02/06/19 History methylprednisolone 4 mg PO DAILY 01/06/19 02/06/19 History naproxen 500 mg PO BID 01/06/19 02/06/19 History olmesartan [Benicar] 20 mg PO QAM 01/06/19 02/06/19 History omeprazole 20 mg PO BID 01/06/19 02/06/19 History tramadol 50 mg PO UD PRN 01/06/19 02/06/19 History Past Med/Surg History Medical History Acid reflux Gout History of kidney stones X1 Hypertension Osteoarthritis Psoriatic arthritis Surgical History History of colonoscopy History of neck surgery C4 CORPECTOMY ([facility]/DR BRAGA) History of total left knee replacement History of total right hip arthroplasty Family History Mother Family history of cancer Sister Family history of cancer Social History Preferred Language: [place] Communication Ability: Effective E Learning Manager Required: No Beliefs That Will Affect Care: None Current Living Situation: Significant Other Other Information That Helps Us Care for You: No Feels Safe at Home: Yes Smoking Status: Never smoker Do You Dip or Chew Tobacco: No (HX OF, QUIT 10 YR AGO) Hx Alcohol Use: Yes Alcohol type: beer Hx Substance Use: No Review of Systems Review of Systems: All systems reviewed & are unremarkable except as noted in HPI & below Constitutional: as per Subjective / HPI Physical Exam Physical Exam: LLE NVSI +EHL/FHL/TA/GS SILT grossly, +2 DP pulse, compartments soft NT, limited painful ROM, antalgic gait Constitutional: WD/WN, vitals as above Eyes: PERRL, conjunctivae normal, anicteric sclerae ENMT: external ear and nose normal, oropharynx normal Neck: trachea midline, no thyromegaly Respiratory: normal respiratory effort, lungs clear to auscultation Cardiovascular: RRR, no murmur, no edema Gastrointestinal (Abdomen): normal bowel sounds, soft, nontender, no hepatosplenomegaly Musculoskeletal: no cyanosis or clubbing, extremities motor strength 5/5 Skin: no rashes, warm and dry Neurologic: patellar DTR's 2+ bilat, sensation intact Psychiatric: A+Ox3, euthymic affect Lymphatic: no cervical or axillary lymphadenopathy Results & Data Diagnostic Findings Multiple views of the hip demonstrates severe DJD with complete loss of the joint space. +osteophytes, +sclerosis, +subchondral cysts.
[~2019-02-06 06:10] MED LIST changes: -ACET-24 PO; -ALLO300T2 PO; -AMOX500C3 PO; -APRE1TAB3 PO; -ASPEC81 PO; -BNC40 PO; -CALC1TAB9 PO; -CEFAZOLIN 2000MG IV PUSH 15 ML IV SCH; -CLB200 PO; +FAMOTIDINE 20 MG TAB PO SCH; -GABAPENTIN 600 MG PO SCH; -LACTATED RINGER'S 1000ML 1,000 ML IV SCH; +LR 15ML/HR IV SCH; +LR 500ML BOLUS, THEN 15ML/HR IV SCH; +METOCLOPRAMIDE HCL 10 MG TABLET PO SCH; -ONDA4TAB46 PO; -PRLSR20 PO; +ROPIVACAINE 0.5% HCL/PF 150 MG, BUPIVACAINE 0.5% MPF 30 ML, EPINEPHrine 30MG/30ML (OR U... INFIL SCH; -RXC5 PO; -STELARA; -TRAM-10 PO; +TRANEXAMIC ACID 1,000 MG **IV Pre-op IV SCH; -VTMD1000 PO; +dexAMETHasone 4 MG TAB PO SCH
[2019-02-06] MEDS ORDERED: BUPIVACAINE 0.5 % 5 MG/1 ML PF 10ML VIAL ONE (06:15)
[2019-02-06] MEDS ORDERED: TRANEXAMIC ACID 1,000 MG **IV Intra-op IV SCH (06:30)
[2019-02-06] MEDS ORDERED: fentaNYL citrate 100 MCG/2 ML VIAL ONE (06:34)
[2019-02-06] MEDS ORDERED: MIDAZOLAM HCL 1 MG/ML 2ML VIAL ONE ×2 (06:34→08:24)
[2019-02-06] MEDS ORDERED: ONDANSETRON INJ 2 MG/ML 2 ML VIAL ONE (06:36)
[2019-02-06] MEDS ORDERED: PROPOFOL IV EMULSION 10 MG/ML 20 ML VIAL IV ONE ×3 (06:36→09:58)
[2019-02-06] MEDS ORDERED: LIDOCAINE HCL 2% 2 ML VIAL/AMP(20MG/ML) INFIL ONE (06:36)
--- NOTE | 2019-02-06 07:05 | History & Physical Bridge Note ---
Date of Service February 06, 2019 History & Physical Bridge Note I have examined the patient, reviewed the History & Physical and in the interval since the performance of the History & Physical I have noted the following changes of clinical significance: no changes noted
[2019-02-06] MEDS ORDERED: CEFAZOLIN 2000MG 2,000 MG/15 ML SYR IV ONE (07:24)
[2019-02-06] MEDS ORDERED: CEFAZOLIN 2,000 MG/15 ML IV PUSH IV ONE (07:26)
[2019-02-06] MEDS ORDERED: ORTHO JOINT ANESTHETIC ONE (07:29)
[2019-02-06] MEDS ORDERED: BACITRACIN INJ 50,000 UNIT VIAL ONE (07:29)
[2019-02-06] MEDS ORDERED: fentaNYL citrate 100 MCG/2 ML VIAL IV PRN (08:14)
[2019-02-06] MEDS ORDERED: HYDROmorphone INJ 1 MG/ML SYRINGE IV PRN (08:14)
[2019-02-06] MEDS ORDERED: ATROPINE SULFATE 0.1 MG/ML 10ML SYR IV PRN (08:14)
[2019-02-06] MEDS ORDERED: ePHEDrine sulfate 50 MG/ML AMP IV PRN (08:14)
[2019-02-06] MEDS ORDERED: KETAMINE HCL INJ 50 MG/ML 10 ML VIAL ONE (09:37)
[2019-02-06] MEDS ORDERED: PHENYLEPHRINE 100MCG/ML 5ML SYR ONE (09:39)
--- NOTE | 2019-02-06 10:26 | Post Operative Brief Note ---
Immediate Post Op Note v1 Date of Surgery February 06, 2019 Pre & Post Diagnosis Operation Date: 02/06/19 09:10 Pre-Op Diagnosis: Unilateral Primary Osteoarthritis, Left Hip Post-Op Diagnosis: Unilateral Primary Osteoarthritis, Left Hip Procedure Operation Date: 02/06/19 09:10 Actual Procedures p Left Anterior Total Hip Arthroplasty(Left) - Kenny Cano DO Surgeon Kenny Cano DO Education Liaison [place] Estimated Blood Loss 75 Findings Consistent with Post-Op Diagnosis Fluids 1500 cc LR Specimens femoral head Anesthesia Type Spinal MAC Complications none Disposition Disposition: Recovery Room Overlapping Procedure I was present for: the critical portions of procedure. I was immediately available: during the entire case. Back up surgeon: was not required during procedure.
--- NOTE | 2019-02-06 10:39 | Fluoroscopy Report ---
INTRAOPERATIVE RADIOGRAPHS CLINICAL HISTORY: Left hip arthroplasty. Fluoroscopy time: 52 seconds. FINDINGS: 2 spot fluoroscopic views of the left hip and pelvis are presented. A bipolar left hip arth roplasty is in near anatomic alignment. A single cortical lag screw transfixes the acetabular cup. Th ere is no evidence of fracture on these fluoroscopic views. A right hip arthroplasty is also in place . IMPRESSION: Intraoperative images from a left hip arthroplasty procedure as above. Electronically signed by: Chalo Fletcher M.D. 02/06/2019 10:38 AM
--- NOTE | 2019-02-06 10:55 | Operative Report ---
Post Operative Report Pre & Post Diagnosis Operation Date: 02/06/19 09:10 Pre-Op Diagnosis: Unilateral Primary Osteoarthritis, Left Hip Post-Op Diagnosis: Unilateral Primary Osteoarthritis, Left Hip Procedure Operation Date: 02/06/19 09:10 Actual Procedures p Left Anterior Total Hip Arthroplasty(Left) - Kenny Cano DO Surgeon Kenny Cano DO Tube Dispatcher Bay Cifuentes Estimated Blood Loss 75 Findings Consistent with Post-Op Diagnosis Specimens Femoral head Anesthesia Type Spinal MAC Complications none Disposition Disposition: Recovery Room Indications The patient is a 58-year-old male who presents with severe progressive left hip DJD who has failed outpatient conservative treatments. I indicated the patient for a anterior total hip replacement and the risks and benefits were explained in detail which include but not limited to infection, bleeding, blood clot, damage to surrounding bone, nerves, vessels, soft tissue, hip dislocation, failure of the prosthesis, leg length discrepancy, need for additional surgery and . The patient agreed to proceed with replacement of the hip and informed consent was obtained. Appropriate clearances were obtained. Description of Procedure COMPONENTS USED: [employer] hip system: Acetabulum size 56, femur size 8 high offset, femoral head 36+0, liner 5636, acetabular screw 25 mm x 1. DESCRIPTION OF PROCEDURE: Following satisfactory spinal anesthesia, the patient was placed supine on the OR table. The right leg was placed in the well leg gomez and the left leg in the traction device. The left leg was prepared and draped in the usual sterile fashion. A surgical timeout was performed, patient identified and site cheri verified. Appropriate antibiotics were given. A standard anterior approach in the interval between the sartorius and tensor muscles was performed. Dissection was carried down through subcutaneous tissues. Electrocautery was utilized for hemostasis. Circumflex femoral vessels were identified, tied and ligated. The anterior capsular fat pad was removed and the capsulotomy was performed revealing the arthritic femoral neck and head. A femoral neck cut was made with reciprocating saw and the bone fragments removed. The acetabular self-retraining retractor was placed. Acetabular reaming was completed under fluoroscopic guidance, a 56 shell was impacted into an anatomic position and secured with a dome screw. Local anesthetic was placed and following irrigation, the polyethylene liner was placed. The femur was placed into position of external rotation, extension and add uction. Femoral canal was prepared up to the size 8 high offset. Trial reduction with a +0 neck length head showed good soft tissue tension, leg lengths restored, and good fit and fill of the proximal canal using fluoroscopic landmarks. The hip was dislocated. The trial component was removed. The final implant was placed. The hip was irrigated with sterile saline solution and reduced. A Betadine soak was performed. After 3 minutes, the hip was once more irrigated with copious sterile saline solution with bacitracin. Damari-incisional soft tissue was injected utilizing [place] [employer] which includes a combination of Ropivicaine 0.5% 150mg, Bupivicaine 0.5%/Epinephrine 1:200,000 30ml, Toradol 30mg, Dexamethasone 4mg, Ketamine 10mg, Clonidine 100mcg and NSS 30ml solution. The capsule was then closed with 1-0 Vicryl interrupted figure of eight sutures. The fascia was closed with a running suture of #1 Vicryl, the subcutaneous tissues with 2-0 Vicryl and the skin with a running subcuticular stitch of 3-0 V-Loc. Dermabond prineo and a dry dressing were applied. The patient tolerated the procedure well and was transported to PACU in stable condition. Due to the complex nature of the procedure, the entire surgery was performed with the operational assistance of Bay Cifuentes PA-C. The merchandising assistant, under direct supervision, was involved in the actual performance of all aspects of the surgical procedure including patient positioning, hemostasis, tissue retraction, instrument management and wound closure. I attest to the content of the Intraoperative Record and any orders documented therein. Any exceptions are noted below.
--- NOTE | 2019-02-06 11:19 | XRay Report ---
XR hip 1V LT w pelvis HISTORY: 63 years-old Male IN PACU - A/P PELVIS and LATERAL HIP left hip total joint arthroplasty COMPARISON: Fluoroscopic images of the left hip of same day at 9:06 AM TECHNIQUE: AP view of the pelvis with crosstable lateral view of the left hip FINDINGS: Bilateral hip total joint arthroplasties are noted with satisfactory alignment. No acute fracture, di slocation or opaque foreign body. Expected postsurgical soft tissue swelling and deep tissue air abou t the left hip. No retained foreign body. IMPRESSION: Bilateral hip total joint arthroplasties demonstrate satisfactory alignment. The above report was generated using voice recognition software. It may contain grammatical, syntax o r spelling errors. Electronically signed by: Poli Burt M.D. 02/06/2019 11:17 AM
--- NOTE | 2019-02-06 11:55 | Anesthesiology Progress Note ---
Date of Service February 06, 2019 Anesthesia Post Procedure Vital Signs Vital Signs: Temp Pulse Resp BP Pulse Ox 02/06/19 11:45 64 20 119/69 96 02/06/19 11:35 68 18 121/73 97 02/06/19 11:25 64 20 110/76 95 02/06/19 11:15 59 L 15 114/70 98 02/06/19 11:05 61 16 113/72 100 02/06/19 10:55 36.3 C L 70 17 118/77 94 02/06/19 07:04 36.4 C L 71 20 141/93 H 98 Transfer of Care Handoff Completed per policy Notes Mental Status: alert / awake / arousable and participated in evaluation Patient Amnestic to Procedure: Yes Nausea / Vomiting: adequately controlled Pain: adequately controlled Airway Patency, RR, SpO2: stable & adequate BP & HR: stable & adequate Hydration State: stable & adequate Anesthetic Complications: no major complications apparent
[2019-02-06] MEDS ORDERED: NALOXONE HCL 0.4 MG/1 ML VIAL/CARP IV PRN (12:51)
[2019-02-06] MEDS ORDERED: ONDANSETRON INJ 2 MG/ML 2 ML VIAL IV PRN (12:51)
[2019-02-06] MEDS ORDERED: BISACODYL 10 MG SUPP PR PRN (12:51)
[2019-02-06] MEDS ORDERED: HYDROmorphone INJ 0.5 MG/0.5 ML SYR IV PRN (12:51)
[2019-02-06] MEDS ORDERED: TRAMADOL HCL 50 MG TABLET PO PRN (12:51)
[2019-02-06] MEDS ORDERED: METOCLOPRAMIDE HCL INJ 5 MG/ML 2 ML VIAL IV PRN (12:51)
[2019-02-06] MEDS ORDERED: SODIUM CHLORIDE 0.9% 1000ML 1,000 ML IV SCH (12:51)
[2019-02-06] MEDS ORDERED: MAGNESIUM HYDROXIDE SUSP 30 ML UDC PO PRN (12:51)
[2019-02-06] MEDS: KETOROLAC TROMETHAMINE 15 MG/ML VIAL IV SCH ×2 (13:59→19:19)
[2019-02-06] MEDS: CEFAZOLIN 2000MG 2,000 MG/15 ML SYR IV SCH ×2 (15:50→23:44)
--- NOTE | 2019-02-06 18:37 | Orthopedic Progress Note ---
Date of Service February 06, 2019 Assessment & Plan (1) Degenerative joint disease of left hip: s/p L anterior ANIKET -ancef x 24 -DVT ppx: SCDs, TEDs, ASA BID -WBAT LLE -PT/OT -PO XR demonstrates well aligned well fixed prosthesis without fracture/dislocation -am labs DC planning - home with HH Subjective Post Operative Progress Note Patient seen sitting up in bed, comfortable, denies complaints, pain well controlled, no acute issues. Review of Systems Review of Systems: All systems reviewed & are unremarkable except as noted in HPI & below Constitutional: as per Subjective / HPI Physical Exam Physical Exam: LLE NVSI +EHL/FHL/TA/GS SILT grossly, +2 DP pulse, compartments soft NT, dressing cdi. Constitutional: WD/WN, vitals as above Results & Data Vital Signs (Past 12 Hours) Vital Signs Temp Pulse Resp BP Pulse Ox 02/06/19 15:45 36.9 C 77 16 132/82 94 02/06/19 15:08 36.5 C 74 18 141/85 H 92 02/06/19 13:58 36.6 C 76 19 132/79 96 02/06/19 13:15 36.8 C 72 16 145/83 H 96 02/06/19 12:45 35.8 C L 62 18 124/79 94 02/06/19 12:30 36.6 C 60 14 116/73 96 02/06/19 12:15 36.6 C 60 14 119/88 96 02/06/19 12:05 62 12 122/73 97 02/06/19 11:55 65 20 120/80 95 02/06/19 11:45 64 20 119/69 96 02/06/19 11:35 68 18 121/73 97 02/06/19 11:25 64 20 110/76 95 02/06/19 11:15 59 L 15 114/70 98 02/06/19 11:05 61 16 113/72 100 02/06/19 10:55 36.3 C L 70 17 118/77 94 02/06/19 07:04 36.4 C L 71 20 141/93 H 98
[2019-02-06] MEDS: PANTOprazole 40 MG TAB PO SCH (20:53)
[2019-02-06] MEDS: DOCUSATE SODIUM 100 MG CAP PO SCH (20:53)
[2019-02-06] MEDS ORDERED: FLUOXETINE HCL 10 MG CAP PO SCH (21:00)
[2019-02-06] MEDS ORDERED: SENNA 8.6 MG TAB PO SCH (21:00)
[2019-02-06] MEDS ORDERED: CeleBREX 200 MG CAP PO SCH (21:00)
[2019-02-06] MEDS: ACETAMINOPHEN 500 MG TAB PO SCH (22:50)
[2019-02-07] MEDS: KETOROLAC TROMETHAMINE 15 MG/ML VIAL IV SCH ×2 (01:57→08:00)
[2019-02-07] MEDS: ACETAMINOPHEN 500 MG TAB PO SCH (05:20)
[2019-02-07 07:09] LABS: Basophils # (auto) 0.01 K/uL (0-0.2); Basophils % (auto) 0.1 %; Hemoglobin 12.3 g/dL (14.0-18.0); Immature Granulocytes # (auto) 0.06 K/uL (0.00-0.02); Immature Granulocytes % (auto) 0.4 %; Lymphocytes # (auto) 1.19 K/uL (1.2-3.4); Lymphocytes % (auto) 8.1 %; Mean Corpuscular Hgb Conc 34.2 g/dL (32-36); Mean Platelet Volume 10.5 fL (7.4-10.4); Monocytes % (auto) 7.5 %; Neutrophils # (auto) 12.34 K/uL (1.4-6.5); Neutrophils % (auto) 83.9 %; Platelet Count 231 K/uL (130-400); RDW Coefficient of Variation 14.7 % (11.5-14.5); RDW Standard Deviation 50.2 fL (36.4-46.3); Red Blood Count 3.83 M/uL (4.7-6.1)
--- NOTE | 2019-02-07 07:30 | Orthopedic Progress Note ---
Date of Service February 07, 2019 Assessment & Plan (1) Degenerative joint disease of left hip: s/p L anterior ANIKET POD#1 -ancef x 24 -DVT ppx: SCDs, TEDs, ASA BID -WBAT LLE -PT/OT -PO XR demonstrates well aligned well fixed prosthesis without fracture/dislocation -am labs - hgb 12.3 DC planning - home with HH Subjective Post Operative Progress Note Patient seen ambulating in bed, comfortable, denies complaints, pain well controlled, no acute issues. Review of Systems Review of Systems: All systems reviewed & are unremarkable except as noted in HPI & below Constitutional: as per Subjective / HPI Physical Exam Physical Exam: LLE NVSI +EHL/FHL/TA/GS SILT grossly, +2 DP pulse, compartments soft NT, dressing cdi. Constitutional: WD/WN, vitals as above Results & Data Vital Signs (Past 12 Hours) Vital Signs Temp Pulse Resp BP Pulse Ox 02/07/19 03:35 36.5 C 70 18 119/68 98 02/06/19 23:10 36.5 C 77 18 119/66 95
[2019-02-07 07:45] LABS: BUN Creatinine Ratio 15.4 (10-20); Calcium 8.6 mg/dl (8.5-10.1); Est GFR (African American) 93.4; Est GFR (Non-African American) 80.6; Potassium 4.1 mmol/L (3.5-5.1)
[2019-02-07] MEDS: DOCUSATE SODIUM 100 MG CAP PO SCH (08:36)
[2019-02-07] MEDS: PANTOprazole 40 MG TAB PO SCH (08:37)
[2019-02-07] MEDS ORDERED: FOLIC ACID 1 MG TAB PO SCH (09:00)
[2019-02-07] MEDS ORDERED: OLMESARTAN MEDOXOMIL 20 MG TAB PO SCH (09:00)
[2019-02-07] MEDS ORDERED: methylPREDNISolone 4 MG TAB PO SCH (09:00)
[2019-02-07] MEDS ORDERED: MULTIVITAMIN TAB PO SCH (09:00)
[2019-02-07] MEDS ORDERED: ALLOPURINOL 300 MG TAB PO SCH (09:00)
[2019-02-07] MEDS ORDERED: ASPIRIN 325 MG ECTAB PO SCH (09:00)
--- NOTE | 2019-02-07 14:27 | Anesthesiology Progress Note ---
Date of Service February 07, 2019 Anesthesia Post Procedure Vital Signs Vital Signs: Temp Pulse Resp BP Pulse Ox 02/07/19 11:30 99 02/07/19 08:17 36.8 C 67 18 137/89 97 02/07/19 08:02 36.5 C 70 18 119/68 98 02/07/19 03:35 36.5 C 70 18 119/68 98 02/06/19 23:10 36.5 C 77 18 119/66 95 02/06/19 19:26 37.0 C 93 H 17 144/81 H 95 02/06/19 15:45 36.9 C 77 16 132/82 94 02/06/19 15:08 36.5 C 74 18 141/85 H 92 Pain Intensity Left Hip: Pain Intensity: 2 Notes Mental Status: alert / awake / arousable Nausea / Vomiting: adequately controlled Pain: adequately controlled Airway Patency, RR, SpO2: stable & adequate BP & HR: stable & adequate Hydration State: stable & adequate Neuraxial Anesthesia: was administered and sensory block resolved Anesthetic Complications: no major complications apparent and Pt Satisfied with anesthetic care
--- NOTE | 2019-02-09 15:20 | Discharge Summary ---
Date of Service February 09, 2019 Admission HPI Per Admitting Provider The patient is a 63 year old male who presents with complaints of severe left hip pain and DJD. The patient has failed outpatient conservative treatments to this point which included NSAIDS, corticosteroid injection, home exercise/walking program. The patient's pain and limited function have progressed to the point where they severely hinder their activities of daily living and they no longer tolerate exercise programs. They are requesting to proceed with total hip replacement surgery. Principal Diagnosis Left anterior total hip replacement Discharge Exam LLE NVSI +EHL/FHL/TA/GS SILT grossly, +2 DP pulse, compartments soft NT, dressing cdi. Constitutional WD/WN, vitals as above Discharge Data Allergies Allergy/AdvReac Type Severity Reaction Status Date / Time tetracycline Allergy Unknown PT UNSURE Verified 01/06/19 11:45 OF RXN, OCCURED A CHILD Consultations 02/07/19 08:00 Consult Case Management - Discharge Planning Routine Procedures Performed Operation Date: 02/06/19 09:10 Actual Procedures p Left Anterior Total Hip Arthroplasty(Left) - Kenny Cano DO Ordered Studies 02/06/19 FL fluoroscopy <1hr Routine FL hip LT 1V Routine Hospital Course (1) Degenerative joint disease of left hip: The patient is a 63 -year-old male who presents with long standing history of severe left hip DJD and failed outpatient conservative treatments including NSAIDs, bracing, injections and home walking/exercise program. The patient's symptoms have progressed to the point where it has been difficult to perform even normal activities of daily living. I indicated the patient for a left anterior total hip arthroplasty, the risks, benefits and complications of the procedure include but not limited to infection, bleeding, damage to bone, nerves, vessels, surrounding soft tissue, may develop blood clots, loss of function, leg length discrepancy, dislocation, failure of the components, loosening of the components, the need for additional surgery and . The patient wished to proceed with surgery at this time and informed consent was obtained. Hospital Course: On 02/06/19 the patient was taken to the operating room, adequate anesthesia administered and underwent a left anterior total hip arthroplasty. The patient tolerated the procedure well and was taken to the PACU in stable condition. Post-operatively the patient was started on a DVT ppx medication and given appropriate IV antibiotics. Consults were placed to physical therapy, occupational therapy and case management. On POD#1, the patient did well overnight and their pain was well controlled. Labs were drawn and the Hgb was 12.3. The patient progressed well with PT. Dressings were changed at this time and the incision was clean, dry and intact. The patients hospital stay was relatively uneventful and they were deemed stable by the orthopedic team and consultants to be discharged home with HH on 02/07/19. Discharge Instructions: Upon discharge the patient may weight bear as tolerates through their operative extremity. They were instructed to keep the incision clean and dry at all times. The patient may shower but should not submerge the incision, avoid bathing, pools and hot tubes. The patient was given a script for pain medication and should take as instructed. The patient was given a script for DVT ppx ASA BID and should take as directed. The patient was instructed to not drive or travel for long distances until cleared to do so. If the patient develops any symptoms of fevers, chills, nausea, vomiting, increased redness, swelling, pain or drainage from the surgical site, they should notify the office and/or proceed to the nearest emergency room. The patient should follow up in 10-14 days after surgery for their routine post-operative follow-up appointment and should call the office to confirm the date and time. s/p L anterior ANIKET POD#1 -ancef x 24 -DVT ppx: SCDs, TEDs, ASA BID -WBAT LLE -PT/OT -PO XR demonstrates well aligned well fixed prosthesis without fracture/dislocation -am labs - hgb 12.3 DC planning - home with HH Total Time Total Time Spent Total Time Spent (In Minutes): 30 minutes Total Time Includes: Examination of the Patient, Discharge Planning, Medication Reconciliation and Communication With Other Providers Discharge Plan Discharge Items Patient Disposition: Home - Home Health Services Reason For Visit: Unilateral Primary Osteoarthritis, Left Hip Discharge Diagnosis: Left anterior total hip replacement Condition: Good Discharge Goals: Decrease discomfort, Improve function, Increase independence and Therapeutic intervention Activity: Per 'Additional Instructions' section Lifting: Wait until after follow-up appointment Bathing Comment: No bathing, pools or hot tubs Sexual Activity: Wait until after follow-up appointment Exercise/Sports: Wait until after follow-up appointment Driving/Machine Use Comment: No driving till cleared by your surgeon Weightbearing: Left weightbearing Non-emergency contact: Primary Care Provider and Surgeon Call non-emergency contact if: you have any medication questions, your symptoms worsen, your pain is not controlled, your pain is worsening, your pain is unusual for you, your pain is concerning for you, you have a fever, your temperature is above 101, your wound has increased redness, your wound has increased drainage and your wound pain has increased Follow-up/Referrals: Sudhir Dickey M.D. [Primary Care Provider] - Diet: Regular Addtl Provider Instructions: ACTIVITY RECOMMENDATIONS: SELF CARE INSTRUCTIONS AFTER TOTAL HIP REPLACEMENT : Direct Anterior Approach Until the incision and soft tissues around your hip have healed, there is a possibility that the hip prosthesis could dislocate. A. Hip flexion ( Up & Down out of chair or steps ) may be difficult. This is normal. B. Numbness in front of the thigh is also normal for a few weeks. C. Use hand rails when walking on stairs. D. Wear low heeled shoes with non-slip soles. E. Be sure that your floors are free of things that could trip you - throw rugs, electrical cords, small objects. Avoid wet and waxed floors, especially with crutches and canes. F. Try to walk several times a day with rest periods between. G. Continue with all the exercises taught to you in the hospital. Again, make walking a part of your daily routine. SPECIAL CARE INSTRUCTIONS: VERY IMPORTANT TO READ AND REVIEW A. You may still be at risk for phlebitis and blood clots. 1. Wear surgical stockings (GURWINDER hose) for 2 weeks after surgery to improve circulation and reduce swelling. 2. Take Aspirin 325mg twice daily for 4 weeks or as directed by your doctor. This is your blood thinner. 3. High risk patients may be prescribed a stronger blood thinner if necessary. 4. If you are on Coumadin normally, your family doctor/senior support engineer should monitor your blood work. Expect a phone call the day of or the day after bloodwork is drawn to adjust your dosage. B. You must take antibiotics before having dental work, bladder, bowel and other surgery. Your doctor will provide you with a permanent card to carry describing precautions. C. Call [facility] [place] if you have a fever, redness or swelling around the incision, cloudy drainage from incision, or sudden increase in pain in your hip, not relieved by your regular pain medication. D. Please call the office at if you have any concerns or questions about your operation or recovery. * YOU MAY SHOWER, NO TUB BATHS UNTIL CLEARED BY YOUR DOCTOR. - Keep an extra close eye on the top portion of your incision. Be sure to keep clean & dry. * WEAR GURWINDER HOSE 20 HOURS PER DAY FOR 2 WEEKS. * YOU MAY PROGRESS FROM A WALKER, TO A CANE, TO INDEPENDENT AT YOUR OWN PACE. * MOST PATIENTS WILL HAVE HOME NURSING FOR THERAPY. IF YOU DECIDE TO DO OUTPATIENT PHYSICAL THERAPY, PLEASE SCHEDULE THIS 3 TIMES PER WEEK. * DERMABOND Prineo- This is a mesh tape dressing that is covered with glue. It should remain in place until the incision is properly healed, usually 10-14 days. This dressing is designed to naturally slough off. You may trim the excess mesh tape as it peels off. Incision may be briefly wet in a shower. Dry immediately by blotting with a clean, dry towel. Do not bath or swim until instructed by your doctor. Do not scratch, rub, or pick at the dressing. Do not apply any topical ointments or lotions until dressing is completely removed and/or instructed by your doctor. There may be a small piece of suture material at one end of your incision. Do not pull or trim this. If it is bothersome or catching on clothing, you may cover it with a band-aid. FOLLOW UP VISIT: If appointment is not already scheduled: Please call [facility] [place] to make a follow-up appointment for 2 weeks after your surgery at . Prescriptions: New aspirin 325 mg Tablet,Delayed Release (Dr/Ec) 325 mg PO BID 28 Days Qty: 56 RF: 0 celecoxib [Celebrex] 200 mg Capsule 200 mg PO BID PRN (Reason: pain) Qty: 28 RF: 0 tramadol 50 mg Tablet 50 - 100 mg PO Q6H PRN (Reason: pain) Qty: 30 RF: 0 docusate sodium 100 mg Capsule 100 mg PO BID PRN (Reason: constipation) Qty: 28 RF: 0 sennosides [Senokot] 8.6 mg Tablet 17.2 mg PO HS PRN (Reason: constipation) Qty: 28 RF: 0 acetaminophen [Tylenol Extra Strength] 500 mg Tablet 1,000 mg PO Q8H PRN (Reason: fever or pain) Qty: 90 RF: 0 Continued methylprednisolone 4 mg Tablet 4 mg PO DAILY RF: 0 fluoxetine 10 mg Capsule 10 mg PO HS RF: 0 omeprazole 20 mg Capsule,Delayed Release(Dr/Ec) 20 mg PO BID RF: 0 folic acid 1 mg Tablet 1 mg PO DAILY RF: 0 allopurinol 300 mg Tablet 300 mg PO QAM RF: 0 olmesartan [Benicar] 20 mg Tablet 20 mg PO QAM RF: 0 cholecalciferol (vitamin D3) [Vitamin D3] 2,000 unit Capsule 2,000 unit PO BID RF: 0 Viactiv 650 mg-12.5 mcg-40 mcg Tablet,Chewable 1 tab PO BID RF: 0 Discontinued tramadol 50 mg Tablet 50 mg PO UD PRN (Reason: Pain) RF: 0 methotrexate sodium 2.5 mg Tablet 12.5 mg PO WK RF: 0 naproxen 500 mg Tablet 500 mg PO BID RF: 0 Otrexup (PF) 20 mg/0.4 mL Auto-Injector 20 mg SUBCUT UD RF: 0 Stand-Alone Forms: [place], Opioid Pain Management [facility]/Other Patient Handouts: Surgery Prevent DVT After, Replacement Hip After Hospital Discharge Orders: Discharge Order (Routine); Ordered 02/07/19 Ordered By: Kenny Cano Admission Data Admit Date/Time: 02/06/19 10:58 Attending Provider: Kenny Cano Admit Provider: Kenny Cano Primary Care Provider: Sudhir Dickey Other Providers: [facility],Home Health Service: Surgical Services Other Interventions: Discharge Summary Assessment (RN) Last Done: 02/07/19 08:02 DC Date/Time DO NOT enter until pt leaves facility: 02/07/19 13:09
== END 2019-02-07 13:09 | disposition home health service (06) | DRG 470 ==
LOC: ASU 06:10 → 3E 10:58